=== PATIENT | female | born 1985 | race African-American/Black ===

== ENCOUNTER 2022-11-06 02:21 | Emergency (ER) | payer SELFPAY ==
[2022-11-06 02:24] VITALS: BP 115/70; PULSE 83; RESP 18; TEMP 37; O2SAT 99; BMI 25.7
[2022-11-06 03:14] VITALS: BP 103/73; PULSE 73; RESP 17; TEMP 36.3; O2SAT 100
--- NOTE | 2022-11-06 03:48 | ECG_ITS ---
Test Reason : CHEST PAIN Blood Pressure : / mmHG Vent. Rate : 065 BPM Atrial Rate : 065 BPM P-R Int : 126 ms QRS Dur : 090 ms QT Int : 402 ms P-R-T Axes : 059 045 032 degrees QTc Int : 418 ms Normal sinus rhythm Normal ECG No previous ECGs available Referred By: Marlen Landis Electronically Signed By:Herber Roque
--- NOTE | 2022-11-06 04:11 | ED_ITS ---
HPI - General Adult General Chief complaint: General Medical Stated complaint: chest pain, arm numbness Time Seen by Provider: 11/06/22 03:46 Source: patient Mode of arrival: ambulatory Limitations: no limitations History of Present Illness HPI narrative: Patient comes to the emergency room complaining of chest pain for 3 months and breast pain for several weeks. Patient states that she feels like, dispensing her nipple. Denies inversion of nipple, denies having palpated lumps in the breast. Denies shortness of breath. No fever chills. No URIs. Related Data Allergies Allergy/AdvReac Type Severity Reaction Status Date / Time No Known Allergies Allergy Verified 11/06/22 02:56 Review of Systems Review of Systems: Constitutional : No Weight loss, No Fever, No Chills, No Night Sweats, No Fatigue, No Malaise ENT/Mouth : No Hearing loss, No Ear Pain, No Nasal Congestion, No Sinus Pain, No Hoarseness, No sore throat, No Rhinorrhea, No Swallowing Difficulty Eyes: No Eye Pain, No Swelling, No Redness, No Foreign Body, No Discharge, No Vision Changes Cardiovascular : Complaining of chronic left-sided Chest Pain, No SOB, No Dyspnea on Exertion, No Orthopnea, No Edema, No Palpitations Respiratory : No Cough, No Sputum, No Wheezing, No Smoke Exposure, No Dyspnea Gastrointestinal : No Nausea, No Vomiting, No Diarrhea, No Constipation, No abdominal Pain, No Hematochezia, No Melena Genitourinary : no irregular bleeding, No Dysuria, No Urinary Frequency, No Hematuria, No Urinary Incontinence, No Urgency, No Flank Pain, No Urinary Flow Changes, No Hesitancy Musculoskeletal : No joint pain, No Myalgias, No Joint Swelling Skin : No Skin Lesions, No rash, complaining of chronic nipple pain on the left, Neuro : No Weakness, No Numbness, No Paresthesias, No Loss of Consciousness, No Dizziness, No Headache Psych : No Anxiety/Panic, No Depression, No SI/HI/AH/VH, No Social Issues, Heme/Lymph: No Bruising, No Bleeding,No Lymphadenopathy Endocrine : No Polyuria, No Polydipsia, No Temperature Intolerance PMFSH Social History Social History Alcohol intake: never Smoked in Last 30 Days: No Use of substances other than those prescribed or required for medical reasons: No Advance Directives: No Advance Directives Information Provided: Yes Physical Exam ED Vital Signs: Vital Signs - 24 hr 11/06/22 02:24 11/06/22 03:14 Temperature 98.6 F 97.3 F Pulse Rate 83 73 Respiratory Rate 18 17 Blood Pressure 115/70 103/73 Pulse Oximetry 99 100 Oxygen Delivery Method Room Air Room Air BMI result Body Mass Index 25.7 Const Other: Appearance: Alert. Oriented X3. No acute distress. Eyes: Pupils equal, round and reactive to light. ENT: Pharynx normal. Neck: Normal inspection. Neck supple. No lymph nodes noted. No crepitus CVS: Normal heart rate and rhythm. Pulses normal. Normal S1 and S2 Respiratory: No respiratory distress. Breath sounds normal. No Wheezing. No rales Abdomen: Soft and nontender. No rigidity. No distention. Skin: Skin warm and dry. Normal skin color. Normal skin turgor. No pulse on the breast within normal limits, no nipple inversion, no palpable lumps on the breasts or axillae Extremities: No lower extremity edema. No Lacerations. No Rash Neuro: Oriented X 3. No motor deficit. No sensory deficit. Moving all extremities. No slurred speech. CN 2 through 12 grossly intact Psych: calm, cooperative, normal affect Course Course Course Narrative: -discussed with the patient that her physical exam is normal. If patient keeps having nipple/breast pain, she will likely need a mammogram which can be arranged through her primary care physician. Medical Decision Making Medical Decision Making [facility] Narrative: -EKG my interpretation: Normal sinus rhythm, heart rate 65, no ST segment depression or elevation, no T-wave inversion, QTC 418 -troponin negative -source of chest pain unlikely to be cardiac, patient has had pain for months, likely musculoskeletal -patient instructed to follow-up with her primary care physician, patient may need mammogram, discussed with patient. Differential Diagnosis Differential Diagnoses: The differential diagnosis associated with the presentation includes (ACS, costochondritis, musculoskeletal pain, unlikely tash gnancy breast) Lab Data [facility] Lab Attestation statement: I reviewed the patient's lab results. 11/06/22 04:21 11/06/22 04:21 Labs: Lab Results 11/06/22 11/06/22 11/06/22 Range/Units 04:21 04:21 04:21 WBC 7.6 (4.8-10.8) X10*3/uL RBC 4.95 (4.20-5.50) X10*6/uL Hgb 10.8 L (12.0-16.0) g/dl Hct 34.7 L (37.0-47.0) % MCV 70.1 L (80.0-98.0) fL MCH 21.8 L (27.0-33.0) pg MCHC 31.1 (31.0-35.0) g/dl RDW 13.7 (11.0-16.0) % Plt Count 272 (160-400) X10*3/uL MPV 9.6 (9.4-12.3) fL Immature Gran % (Auto) 0.1 (0.0-0.4) % Neut % (Auto) 61.1 (45-73) % Lymph % (Auto) 28.6 (20-40) % [place] % (Auto) 8.6 (2-11) % Eos % (Auto) 0.9 (0-4) % Baso % (Auto) 0.7 (0-2) % Lymph # (Auto) 2.2 (1.2-4.9) X10*3/uL [place] # (Auto) 0.7 (0.1-1.2) X10*3/uL Eos # (Auto) 0.1 (0.0-0.4) X10*3/uL Baso # (Auto) 0.1 (0.0-0.2) X10*3/uL Abs Immat Gran (auto) 0.01 (0.00-0.03) X10*3/uL Absolute Neuts (auto) 4.6 (2.0-8.3) x10*3/uL Absolute Nucleated RBC 0.000 (0.0-0.012) X10*3/uL Nucleated RBC % (auto) 0.0 (0.0-0.2) /100WBC Sodium 140 (135-145) mmol/L Potassium 3.6 (3.3-5.1) mmol/L Chloride 108 (96-108) mmol/L Carbon Dioxide 26 (22-29) mmol/L Anion Gap 10 L (12-20) BUN 7 L (9-16) mg/dL Creatinine 0.75 (0.5-1.4) mg/dL Estim Creat Clear Calc 94.5 Estimated GFR > 60 Random Glucose 97 (60-115) mg/dL Calcium 9.3 (8.4-10.2) mg/dL Troponin I High Sens < 2.7 (<3.5-17.0) ng/L Critical Care Time Critical Care Time Critical Care Time: Yes Total Critical Care Time: 30 Attestation: I have personally provided critical care time. Time includes review of lab data, radiology results, discussion with consultants, and monitoring for potential decompensation. Intervention performed as documented. Discharge Plan Discharge Clinical Impression: Chronic chest pain Patient Disposition: Home, Self-Care Instructions: Chest Pain (ED) Additional Instructions: May take Tylenol or ibuprofen for the pain. Please follow-up with her primary care physician, you may need a mammogram if you continue having breast pain. Please follow-up with your primary care physician tomorrow. If you have any worsening or new symptoms, please return to the emergency room or call 911
[2022-11-06 04:26] LABS: Basophils Absolute Auto 0.1 X10*3/uL (0.0-0.2); Basophils Percent Auto 0.7 % (0-2); Eosinophils Absolute Auto 0.1 X10*3/uL (0.0-0.4); Eosinophils Percent Auto 0.9 % (0-4); Hematocrit 34.7 % (37.0-47.0); Hemoglobin 10.8 g/dl (12.0-16.0); Imm Gran Abs Auto 0.01 X10*3/uL (0.00-0.03); Imm Gran Pct Auto 0.1 % (0.0-0.4); Lymphocytes Absolute Auto 2.2 X10*3/uL (1.2-4.9); Lymphocytes Percent Auto 28.6 % (20-40); MANUAL DIFF FLAG NO; Mean Corpuscular HGB Conc 31.1 g/dl (31.0-35.0); Mean Corpuscular Hemoglobin 21.8 pg (27.0-33.0); Mean Corpuscular Volume 70.1 fL (80.0-98.0); Mean Platelet Volume 9.6 fL (9.4-12.3); Monocytes Absolute Auto 0.7 X10*3/uL (0.1-1.2); Monocytes Percent Auto 8.6 % (2-11); Neutrophils Absolute Auto 4.6 x10*3/uL (2.0-8.3); Neutrophils Percent Auto 61.1 % (45-73); Platelet Count 272 X10*3/uL (160-400); Red Blood Count 4.95 X10*6/uL (4.20-5.50); Red Cell Distribution Width 13.7 % (11.0-16.0); White Blood Count 7.6 X10*3/uL (4.8-10.8)
[2022-11-06 04:40] LABS: Anion Gap 10 (12-20); Blood Urea Nitrogen 7 mg/dL (9-16); Calcium 9.3 mg/dL (8.4-10.2); Carbon Dioxide 26 mmol/L (22-29); Chloride 108 mmol/L (96-108); Creatinine Clr Calc Pharmacy 94.5; Estimated Glomerular Filt Rate > 60; Glucose Random 97 mg/dL (60-115); Potassium 3.6 mmol/L (3.3-5.1); Sodium 140 mmol/L (135-145)
[2022-11-06 04:48] LABS: Troponin-I High Sensitivity < 2.7 ng/L (<3.5-17.0)
[2022-11-06 05:30] VITALS: BP 112/74; PULSE 73; RESP 17; TEMP 36.9; O2SAT 99
== END 2022-11-06 05:30 | disposition home or self-care (01) ==
PROVIDERS: Emergency Provider Emergency Medicine
DX: G89.29 Other chronic pain (principal); R07.9 Chest pain, unspecified
CPT/HCPCS: 36415; 80048; 84484; 85025; 93005; 99283; 99284

== ENCOUNTER → 2022-11-06 03:48 | Outpatient (BNV) | payer SELFPAY | PROVIDERS: Emergency Provider Emergency Medicine; Visit Provider Internal Medicine Cardiovascular Disease | DX: R07.9 Chest pain, unspecified (principal) | CPT/HCPCS: 93010 ==

== ENCOUNTER 2023-12-22 18:04 | Emergency (ER) | payer MEDICAID, SELFPAY ==
[2023-12-22 18:19] VITALS: BP 114/73; PULSE 85; RESP 18; TEMP 36.6; O2SAT 99; BMI 26.6
--- NOTE | 2023-12-22 18:21 | ED.GENADULT ---
HPI - General Adult General Chief complaint: Abdominal Pain Stated complaint: Vaginal discomfort/?Preg Time Seen by Provider: 12/22/23 21:01 Related Data Allergies Allergy/AdvReac Type Severity Reaction Status Date / Time Penicillins [PCN] Allergy Anaphylaxis Verified 12/22/23 18:22 [facility] Social History Social History Alcohol intake: never Smoked in Last 30 Days: No Advance Directives: No Advance Directives Information Provided: Yes Do you have a plan to hurt others: No Plan Physical Exam ED Vital Signs: Vital Signs - 24 hr 12/22/23 18:19 12/22/23 20:12 12/22/23 20:24 Temperature 98 F 98.8 F 98.4 F Pulse Rate 85 67 69 Respiratory Rate 18 17 20 Blood Pressure 114/73 107/68 107/68 Pulse Oximetry 99 100 99 Oxygen Delivery Method Room Air Room Air Room Air BMI result Body Mass Index 26.6 Course Course Course Narrative: RME, this is a rapid medical exam performed by Josue Rivera please refer to primary provider for complete H&P- 38 year old female presents for evaluation of pelvic pain and discharge. She reports that he last menstrual cycle was 11/30/23. She reports having 3 positive tests at home, but is status post tubal ligation. Plan for labs, UA. Will consider ultrasound pending HCG resullts Reevaluation(s) Reevaluation #1: please see other chart that I started Time: 21:19 Medical Decision Making Lab Data 12/22/23 18:34 12/22/23 18:34 Labs: Lab Results 12/22/23 Range/Units 18:34 WBC 8.0 (4.8-10.8) X10*3/uL RBC 4.83 (4.20-5.50) X10*6/uL Hgb 10.7 L (12.0-16.0) g/dl Hct 34.3 L (37.0-47.0) % MCV 71.0 L (80.0-98.0) fL MCH 22.2 L (27.0-33.0) pg MCHC 31.2 (31.0-35.0) g/dl RDW 14.0 (11.0-16.0) % Plt Count 242 (160-400) X10*3/uL MPV 9.5 (9.4-12.3) fL Immature Gran % (Auto) 0.3 (0.0-0.4) % Neut % (Auto) 61.1 (45-73) % Lymph % (Auto) 27.1 (20-40) % [place] % (Auto) 9.8 (2-11) % Eos % (Auto) 1.1 (0-4) % Baso % (Auto) 0.6 (0-2) % Lymph # (Auto) 2.2 (1.2-4.9) X10*3/uL [place] # (Auto) 0.8 (0.1-1.2) X10*3/uL Eos # (Auto) 0.1 (0.0-0.4) X10*3/uL Baso # (Auto) 0.1 (0.0-0.2) X10*3/uL Abs Immat Gran (auto) 0.02 (0.00-0.03) X10*3/uL Absolute Neuts (auto) 4.9 (2.0-8.3) x10*3/uL Absolute Nucleated RBC 0.000 (0.0-0.012) X10*3/uL Nucleated RBC % (auto) 0.0 (0.0-0.2) /100WBC Sodium 139 (135-145) mmol/L Potassium 3.8 (3.3-5.1) mmol/L Chloride 109 H (96-108) mmol/L Carbon Dioxide 23 (22-29) mmol/L Anion Gap 11 L (12-20) BUN 10 (9-16) mg/dL Creatinine 0.87 (0.5-1.4) mg/dL Estim Creat Clear Calc 81.2 Estimated GFR > 60 Random Glucose 103 (60-115) mg/dL Calcium 9.0 (8.4-10.2) mg/dL Total Bilirubin 0.4 (0.0-1.0) mg/dL AST 12 (5-31) U/L ALT 11 (0-31) U/L Alkaline Phosphatase 82 (39-117) U/L Total Protein 6.7 (6.5-8.0) g/dL Albumin 3.9 (3.5-5.0) g/dL Lipase 28 (8-78) U/L Beta HCG, Quant < 2 mIU/mL Urine Color Yellow Urine Appearance Clear Urine pH 6.5 (5.0-9.0) Ur Specific [place] 1.010 (1.005-1.025) Urine Protein Negative (Neg-Trace) mg/dL Urine Glucose (UA) Negative (Negative) mg/dL Urine Ketones Negative (Negative) mg/dL Urine Blood Moderate (2+) H (Negative) Urine Nitrite Negative (Negative) Ur Leukocyte Esterase Negative (Negative) Urine RBC 6-10 H (0-2) /HPF Urine WBC 0-5 (0-5) /HPF Ur Squamous Epith Cells 6-10 (0-2) /HPF Urine Bacteria 1+ (None Seen) Hyaline Casts 0-2 (0-2) /LPF Discharge Plan Discharge Clinical Impression: Abdominal pain, Pelvic pain Patient Disposition: Home, Self-Care Instructions: Pelvic Pain in Women (ED), Abdominal Pain (ED) Additional Instructions: call your obstetrics/gynecology nurse this week for follow up Referrals: Physician,None [Primary Care Provider] - 5 days Print Language: Maori
[2023-12-22 18:40] LABS: MANUAL DIFF FLAG NO
[2023-12-22 18:42] LABS: Basophils Absolute Auto 0.1 X10*3/uL (0.0-0.2); Basophils Percent Auto 0.6 % (0-2); Eosinophils Absolute Auto 0.1 X10*3/uL (0.0-0.4); Eosinophils Percent Auto 1.1 % (0-4); Hematocrit 34.3 % (37.0-47.0); Hemoglobin 10.7 g/dl (12.0-16.0); Imm Gran Abs Auto 0.02 X10*3/uL (0.00-0.03); Imm Gran Pct Auto 0.3 % (0.0-0.4); Lymphocytes Absolute Auto 2.2 X10*3/uL (1.2-4.9); Lymphocytes Percent Auto 27.1 % (20-40); Mean Corpuscular HGB Conc 31.2 g/dl (31.0-35.0); Mean Corpuscular Hemoglobin 22.2 pg (27.0-33.0); Mean Platelet Volume 9.5 fL (9.4-12.3); Monocytes Absolute Auto 0.8 X10*3/uL (0.1-1.2); Monocytes Percent Auto 9.8 % (2-11); Neutrophils Absolute Auto 4.9 x10*3/uL (2.0-8.3); Neutrophils Percent Auto 61.1 % (45-73); Platelet Count 242 X10*3/uL (160-400); Red Blood Count 4.83 X10*6/uL (4.20-5.50)
[2023-12-22 18:43] LABS: Appearance Urine Clear; Color Urine Yellow; Glucose Urine UA Negative (Negative); Leukocyte Esterase Urine Negative (Negative); Nitrite Urine Negative (Negative); PH 6.5 (5.0-9.0); UMIC TRIGGER UACC YES; Urine Blood Moderate (2+) (Negative); Urine Ketones Negative (Negative); Urine Protein Negative (Neg-Trace)
[2023-12-22 18:45] LABS: Bacteria Urine 1+ (None Seen); Hyaline Casts Urine 0-2 /LPF (0-2); WBC Urine 0-5 /HPF (0-5)
[2023-12-22 19:04] LABS: Alanine Aminotransferase 11 U/L (0-31); Albumin Level 3.9 g/dL (3.5-5.0); Alkaline Phosphatase 82 U/L (39-117); Anion Gap 11 (12-20); Aspartate Amino Transferase 12 U/L (5-31); Bilirubin Total 0.4 mg/dL (0.0-1.0); Blood Urea Nitrogen 10 mg/dL (9-16); Carbon Dioxide 23 mmol/L (22-29); Chloride 109 mmol/L (96-108); Creatinine Clr Calc Pharmacy 81.2; Estimated Glomerular Filt Rate > 60; Glucose Random 103 mg/dL (60-115); Lipase 28 U/L (8-78); Potassium 3.8 mmol/L (3.3-5.1); Sodium 139 mmol/L (135-145); Total Protein 6.7 g/dL (6.5-8.0)
[2023-12-22 19:06] LABS: HCG Quantitative < 2 mIU/mL
[2023-12-22 20:12] VITALS: BP 107/68; PULSE 67; RESP 17; TEMP 37.1; O2SAT 100
[2023-12-22 20:24] VITALS: BP 107/68; PULSE 69; RESP 20; TEMP 36.9; O2SAT 99
--- NOTE | 2023-12-22 21:10 | ED.ABDPAIN ---
HPI - Abdominal Pain General Chief Complaint: Abdominal Pain Stated Complaint: Vaginal discomfort/?Preg Time Seen by Provider: 12/22/23 21:01 Source: patient Mode of arrival: ambulatory Limitations: no limitations History of Present Illness ED Provider: Dr. Ochoa HPI narrative: Patient concerned because she has her tubes tied and has been having pelvic LLQ tenderness. She took 3 tests at home which were positive. Onset (ago): week(s) Related Data Allergies Allergy/AdvReac Type Severity Reaction Status Date / Time Penicillins [PCN] Allergy Anaphylaxis Verified 12/22/23 18:22 Review of Systems Review of Systems Yes all other systems are reviewed and are negative Denies Sensory deficit (Neuro) [facility] Social History Social History Alcohol intake: never Smoked in Last 30 Days: No Advance Directives: No Advance Directives Information Provided: Yes Do you have a plan to hurt others: No Plan Physical Exam ED Vital Signs: Vital Signs - 24 hr 12/22/23 18:19 12/22/23 20:12 12/22/23 20:24 Temperature 98 F 98.8 F 98.4 F Pulse Rate 85 67 69 Respiratory Rate 18 17 20 Blood Pressure 114/73 107/68 107/68 Pulse Oximetry 99 100 99 Oxygen Delivery Method Room Air Room Air Room Air BMI result Body Mass Index 26.6 Const General: healthy appearing Nutritional Appearance: average body habitus Orientation/consciousness: oriented to person and patient oriented x3 Limitations: no limitations HENMT Head: Yes normal to inspection Ears: external ears normal General nose exam: Normal external nose present Mouth: Normal oral and palatal mucosa present and oropharynx normal Throat: Yes posterior oropharynx normal Eyes General: appearance normal, both eyes and all related structures Neck Neck: Yes normal visual inspection Chest Chest palpation & inspection: normal inspection of the chest Resp Auscultation: clear to auscultation bilaterally Cardio Jugular venous distension: no JVD Rate: regular rate Rhythm: regular rhythm Heart sounds: S1 normal heart sound present and S2 normal heart sound present GI Inspection: Yes normal to inspection Palpation (GI): Soft to palpation, nontender and No hepatosplenomegaly present Auscultation: normal bowel sounds General: Yes no CVA tenderness Back/Spine/Pelvis Back: no CVA tenderness Skin General skin exam: no rashes or lesions noted Neuro General: oriented to person and patient oriented x3 Cranial nerves: Yes CN's II-XII intact bilaterally Motor exam (neuro): 5/5 motor strength present throughout Sensory Exam: No Sensory deficit (Neuro) Extrem General: Yes normal to inspection Psych Appearance: grossly normal Course Reevaluation(s) Reevaluation #1: patient appearing well, non toxic appearing, no abdominal pain to palpation. BHCG quant negative, will check urine for neisseria and chlamydia and dc home to follow up with her obstetrics gynecology md Time: 21:13 Medical Decision Making Differential Diagnosis Differential Diagnoses: The differential diagnosis associated with the presentation includes (ectopic , ovarian cyst, UTI, STI) Admission/Observation Consideration of admission/observation: Escalation of care including admission/observation considered (upon arrival patient considered for admission) Lab Data 12/22/23 18:34 12/22/23 18:34 Labs: Lab Results 12/22/23 Range/Units 18:34 WBC 8.0 (4.8-10.8) X10*3/uL RBC 4.83 (4.20-5.50) X10*6/uL Hgb 10.7 L (12.0-16.0) g/dl Hct 34.3 L (37.0-47.0) % MCV 71.0 L (80.0-98.0) fL MCH 22.2 L (27.0-33.0) pg MCHC 31.2 (31.0-35.0) g/dl RDW 14.0 (11.0-16.0) % Plt Count 242 (160-400) X10*3/uL MPV 9.5 (9.4-12.3) fL Immature Gran % (Auto) 0.3 (0.0-0.4) % Neut % (Auto) 61.1 (45-73) % Lymph % (Auto) 27.1 (20-40) % [place] % (Auto) 9.8 (2-11) % Eos % (Auto) 1.1 (0-4) % Baso % (Auto) 0.6 (0-2) % Lymph # (Auto) 2.2 (1.2-4.9) X10*3/uL [place] # (Auto) 0.8 (0.1-1.2) X10*3/uL Eos # (Auto) 0.1 (0.0-0.4) X10*3/uL Baso # (Auto) 0.1 (0.0-0.2) X10*3/uL Abs Immat Gran (auto) 0.02 (0.00-0.03) X10*3/uL Absolute Neuts (auto) 4.9 (2.0-8.3) x10*3/uL Absolute Nucleated RBC 0.000 (0.0-0.012) X10*3/uL Nucleated RBC % (auto) 0.0 (0.0-0.2) /100WBC Sodium 139 (135-145) mmol/L Potassium 3.8 (3.3-5.1) mmol/L Chloride 109 H (96-108) mmol/L Carbon Dioxide 23 (22-29) mmol/L Anion Gap 11 L (12-20) BUN 10 (9-16) mg/dL Creatinine 0.87 (0.5-1.4) mg/dL Estim Creat Clear Calc 81.2 Estimated GFR > 60 Random Glucose 103 (60-115) mg/dL Calcium 9.0 (8.4-10.2) mg/dL Total Bilirubin 0.4 (0.0-1.0) mg/dL AST 12 (5-31) U/L ALT 11 (0-31) U/L Alkaline Phosphatase 82 (39-117) U/L Total Protein 6.7 (6.5-8.0) g/dL Albumin 3.9 (3.5-5.0) g/dL Lipase 28 (8-78) U/L Beta HCG, Quant < 2 mIU/mL Urine Color Yellow Urine Appearance Clear Urine pH 6.5 (5.0-9.0) Ur Specific [place] 1.010 (1.005-1.025) Urine Protein Negative (Neg-Trace) mg/dL Urine Glucose (UA) Negative (Negative) mg/dL Urine Ketones Negative (Negative) mg/dL Urine Blood Moderate (2+) H (Negative) Urine Nitrite Negative (Negative) Ur Leukocyte Esterase Negative (Negative) Urine RBC 6-10 H (0-2) /HPF Urine WBC 0-5 (0-5) /HPF Ur Squamous Epith Cells 6-10 (0-2) /HPF Urine Bacteria 1+ (None Seen) Hyaline Casts 0-2 (0-2) /LPF Tests considered The following testing was considered but not selected: Considered obtaining and US of the pelvis, but patient with normal labs, normal vitals and nontender abdomen Prescription Management I considered prescription management with: Antibiotic (no evidence of UTI so no abx prescribed) Discharge Plan Discharge Clinical Impression: Abdominal pain, Pelvic pain Patient Disposition: Home, Self-Care Instructions: Pelvic Pain in Women (ED), Abdominal Pain (ED) Additional Instructions: call your obstetrics gynecology md this week for follow up Referrals: Physician,None [Primary Care Provider] - 5 days Interventions: ED Discharge Assessment Last Done: 12/22/23 21:43 Discharge Date/Time: 12/22/23 21:45 Print Language: Iranian
[2023-12-22 21:43] VITALS: BP 104/71; PULSE 76; RESP 16; TEMP 36.9; O2SAT 100
== END 2023-12-22 21:45 | disposition home or self-care (01) ==
PROVIDERS: Physician Assistant; Emergency Provider Emergency Medicine
DX: R10.9 Unspecified abdominal pain (principal); R10.2 Pelvic and perineal pain; N89.8 Other specified noninflammatory disorders of vagina; Z98.51 Tubal ligation status
CPT/HCPCS: 36415; 80053; 81001; 83690; 84702; 85025; 99283; 99284

== ENCOUNTER 2024-06-07 21:58 | Inpatient (IN) | payer MEDICAID, SELFPAY ==
--- NOTE | 2024-06-07 | ECG_ITS ---
Test Reason : SEIZURE Blood Pressure : */* mmHG Vent. Rate : 112 BPM Atrial Rate : 112 BPM P-R Int : 130 ms QRS Dur : 80 ms QT Int : 310 ms P-R-T Axes : 55 28 16 degrees QTcB Int : 423 ms Sinus tachycardia Otherwise normal ECG When compared with ECG of 06-Nov-2022 03:55, Vent. rate has increased by 47 bpm Nonspecific T wave abnormality now evident in Anterior leads Referred By: Generic ED Physician Electronically Signed By: DEBORAH MCKEON
--- NOTE | ~2024-06-07 | CT_ITS ---
CLINICAL HISTORY: abdominal pain, rectal bleed. CT abdomen and pelvis without contrast Comparison: None Findings: The lung bases are clear. The gallbladder is surgically absent. No biliary ductal dilatation. Unenhanced liver, spleen, pancreas, adrenal glands and kidneys are within normal limits. No ureteral stones and no hydronephrosis or hydroureter. No bowel obstruction, pneumoperitoneum, or pneumatosis. Normal appendix. Uterus is retroverted. Urinary bladder is nearly empty. Abdominal aorta is normal in size. No acute fracture. IMPRESSION: 1. No acute findings. 2. Reason for rectal bleeding is not apparent on the CT. This document has been electronically signed by: Geeta Mary MD on 06/08/2024 00:24:35
--- NOTE | ~2024-06-07 | US_ITS ---
EXAMINATION: US PELVIS CLINICAL INFORMATION: Abnormal uterine bleeding. COMPARISON: None available. Correlation made with CT abdomen and pelvis 06/07/2024. TECHNIQUE: Ultrasound of the pelvis is performed using both transabdominal and transvaginal transducers along with Doppler. Transvaginal imaging is performed due to inadequate visualization transabdominally. FINDINGS: Uterus: The uterus is retroverted, retroflexed, and measures 10.3 x 5.3 x 6.4 cm. The cervix is normal in appearance with a small nabothian cyst. The double wall endometrial thickness is 9 mm. It is uniform without irregularity. Trilaminar appearance. The uterus is smooth in contour and has normal myometrial echogenicity. No visible fibroid. Adnexa: Both ovaries are visualized. There is normal color flow to the adnexa. There is no ovarian torsion. Trace anechoic free pelvic fluid, likely physiologic. There are no adnexal masses. Right ovary measures 3.2 x 1.5 x 1.2 cm. Volume = 3.0 mL. Normal sonographic appearance. Left ovary measures 4.2 x 2.8 x 3.7 cm. Volume = 22.8 mL. Dominant follicle present measuring up to 2.9 cm. Normal sonographic appearance. US/US pelvic and transvaginal IMPRESSION: Normal pelvic ultrasound. No etiology for abnormal uterine bleeding. Electronically signed by: Devin Miller MD 06/10/2024 03:54 PM [facility]
--- NOTE | ~2024-06-07 | MR_ITS ---
CLINICAL HISTORY: seizure MR of the brain without contrast Comparison: CT/SR - CT HEAD/BRAIN WO IV CON - 06/07/24 23:06 EST Findings: No acute infarction, hemorrhage, mass-effect or herniation. No hydrocephalus. Signal intensity is within normal limits. No evidence of mesial temporal sclerosis. No extra-axial fluid collection or mass. Unremarkable sella. Intact flow voids. Normal orbits. Mild mucosal thickening in the paranasal sinuses with a trace amount of fluid. Retention cysts/polyps in the maxillary sinuses. The mastoid air cells are clear. Unremarkable osseous structures. Impression: Normal brain. Sinusitis could be considered. This document has been electronically signed by: Yolis Krause MD on 06/08/2024 18:06:22
--- NOTE | ~2024-06-07 | CT_ITS ---
CLINICAL HISTORY: seizure, fall, neck pain CT cervical spine without contrast Comparison: None Findings: Normal vertebral body alignment. No significant degenerative change. No acute fractures or dislocations. Prevertebral soft tissues within normal limits. Lung apices are clear. IMPRESSION: No acute findings. This document has been electronically signed by: Geeta Mary MD on 06/08/2024 00:28:16
--- NOTE | ~2024-06-07 | CT_ITS ---
CLINICAL HISTORY: seizure, headache CT head without contrast Comparison: None Findings: No intra-axial mass, midline shift, hydrocephalus, or acute hemorrhage. No significant atrophy-like change or white matter disease. Mucosal thickening in bilateral maxillary sinuses and ethmoid air cells and right maxillary sinus mucous retention cyst/polyp. The orbits are unremarkable. There is no acute skull fracture. IMPRESSION: 1. No acute intracranial findings. This document has been electronically signed by: Geeta Mary MD on 06/08/2024 00:31:56
--- NOTE | ~2024-06-07 | XR_ITS ---
CLINICAL HISTORY: cough 1 view chest x-ray Comparison: None Findings: Normal size heart. No consolidation, significant pleural effusion or pneumothorax. No acute fracture. IMPRESSION: 1. No acute findings. This document has been electronically signed by: Geeta Mary MD on 06/07/2024 23:33:34
[2024-06-07 22:14] VITALS: BP 110/54; BP 110/64; PULSE 110; PULSE 120; RESP 20; TEMP 37.9; O2SAT 100; BMI 28.3
[2024-06-07 22:18] VITALS: BP 110/54; PULSE 110; RESP 20; TEMP 37.9; O2SAT 100
[2024-06-07 22:35] LABS: MANUAL DIFF FLAG NO
[2024-06-07 22:37] LABS: Basophils Percent Auto 0.3 % (0-2); Eosinophils Percent Auto 0.3 % (0-4); Hematocrit 34.6 % (37.0-47.0); Imm Gran Abs Auto 0.01 X10*3/uL (0.00-0.03); Imm Gran Pct Auto 0.2 % (0.0-0.4); Lymphocytes Absolute Auto 0.8 X10*3/uL (1.2-4.9); Lymphocytes Percent Auto 12.9 % (20-40); Mean Corpuscular HGB Conc 31.8 g/dl (31.0-35.0); Mean Corpuscular Hemoglobin 22.2 pg (27.0-33.0); Mean Corpuscular Volume 69.9 fL (80.0-98.0); Mean Platelet Volume 9.4 fL (9.4-12.3); Monocytes Absolute Auto 0.9 X10*3/uL (0.1-1.2); Monocytes Percent Auto 14.7 % (2-11); Neutrophils Absolute Auto 4.2 x10*3/uL (2.0-8.3); Neutrophils Percent Auto 71.6 % (45-73); Platelet Count 208 X10*3/uL (160-400); Red Blood Count 4.95 X10*6/uL (4.20-5.50); Red Cell Distribution Width 13.7 % (11.0-16.0); White Blood Count 5.8 X10*3/uL (4.8-10.8)
[2024-06-07 22:51] LABS: Alanine Aminotransferase 10 U/L (0-31); Albumin Level 3.7 g/dL (3.5-5.0); Alkaline Phosphatase 82 U/L (39-117); Anion Gap 9 (12-20); Aspartate Amino Transferase 17 U/L (5-31); Bilirubin Total 0.3 mg/dL (0.0-1.0); Blood Urea Nitrogen 10 mg/dL (9-16); Calcium 8.2 mg/dL (8.4-10.2); Carbon Dioxide 25 mmol/L (22-29); Chloride 109 mmol/L (96-108); Creatinine Clr Calc Pharmacy 89.8; Estimated Glomerular Filt Rate > 60; Glucose Random 102 mg/dL (60-115); Magnesium 1.7 mg/dL (1.6-2.6); Potassium 3.4 mmol/L (3.3-5.1); Sodium 140 mmol/L (135-145); Total Protein 6.7 g/dL (6.5-8.0)
--- NOTE | 2024-06-07 22:57 | ED_ITS ---
HPI - General Adult General Chief complaint: Seizure Stated complaint: SIEZURES, N/V DIARRHEA Time Seen by Provider: 06/07/24 22:39 Source: patient and EMS Mode of arrival: EMS Limitations: no limitations History of Present Illness ED Provider: DR. Gamez HPI narrative: A 38-year-old female brought in by ambulance for evaluation multiple complaints. 1. Headache for the past 2 days and seeing black spots and feeling dizzy. 2. Nausea, vomiting, black stool diarrhea x2 last bowel movement was earlier today, patient been having a diffuse abdominal pain. 3. Fever, nonproductive coughing. 4. Witnessed by her family collapsed and having seizure activity that the patient has no memory of it. Patient otherwise declined using any drugs, no history of seizure, no alcohol use. No sick contacts, no recent travel, patient with a chronic GI issue and constipation. Related Data Allergies Allergy/AdvReac Type Severity Reaction Status Date / Time Penicillins [PCN] Allergy Anaphylaxis Verified 06/07/24 22:17 Review of Systems 2 Review of Systems: All other systems are reviewed and are negative Constitutional: Reports as per HPI and Reports no additional constitutional complaints Eyes: Reports as per HPI and Reports no additional eye complaints Reports system reviewed and no additional complaints, except as documented Cardiovascular: Reports as per HPI and Reports no additional cardiovascular complaints Respiratory: Reports as per HPI and Reports no additional respiratory complaints Gastrointestinal: Reports as per HPI and Reports no additional gastrointestinal complaints Genitourinary: Reports no additional female genitourinary complaints Musculoskeletal: Reports no additional musculoskeletal complaints Skin/Breast: Reports system reviewed and no additional complaints, except as docu Psychiatric: Reports no additional psychiatric complaints Endocrine: Reports no additional endocrine complaints Hematologic/Lymphatic: Reports no additional hematologic/lymphatic complaints Allergic/Immunologic: Reports no additional allergic/immunologic complaints Reports system reviewed and no additional complaints, except as documented and Reports Abnormal speech present [facility] Social History Social History Alcohol intake: never Smoked in Last 30 Days: No Use of substances other than those prescribed or required for medical reasons: No Advance Directives: No Advance Directives Information Provided: No Patient : No Physical Exam ED Vital Signs: Vital Signs - 24 hr 06/07/24 22:14 06/07/24 22:18 06/07/24 23:27 Temperature 100.3 F 100.3 F 102.3 F H Pulse Rate 110 H 110 H 102 H Respiratory Rate 20 20 22 H Blood Pressure 110/54 L 110/54 L 101/52 L Pulse Oximetry 100 100 100 Oxygen Delivery Method Room Air Room Air Room Air 06/08/24 00:36 Temperature 100.0 F Pulse Rate 113 H Respiratory Rate 11 L Blood Pressure 95/51 L Pulse Oximetry 99 Oxygen Delivery Method Room Air BMI result Body Mass Index 28.3 Vital signs have been reviewed and appear to be correct. Blood pressure elevated. Tachycardia, Respiratory rate normal. Fever. Oxygen saturation normal. Appearance: Alert. Oriented X3. No acute distress. Head: Normal external exam. Normocephalic. Atraumatic. No Sullivan signs noted. No raccoon eyes noted Eyes: PERRLA. EOMI. Conjunctiva and sclera normal. Eyelids normal. ENT: TM's Normal. Pharynx normal. Uvula midline. Moist mucous membranes. No trismus noted. No drooling noted. No muffled voice noted. Neck: Normal inspection. Neck supple. FROM. No adenopathy. Thyroid Normal. No meningeal signs. No neck mass noted. CVS: Normal heart rate and rhythm. Heart sound normal. No murmurs noted. Pulses normal throughout. Respiratory: No respiratory distress. Painless inspiration. Breath sounds normal. No wheezes/rales/rhonchi noted. Chest nontender. No accessory muscle usage noted or decreased air movement noted. Abdomen: Soft and nontender. Bowel sounds normal in all 4 quadrants. No distention noted. No organomegaly noted. No visible injury noted. Rectal exam: No stool in the vault, no active bleeding, no tenderness, no palpable masses. Back: No CVA tenderness. Full range of motion noted. Skin: Skin warm and dry. Normal skin color. Normal skin turgor. No rashes/lesions/lacerations noted. Extremities: No lower extremity edema. Extremities exhibit normal range of motion. Extremities nontender. Neuro: Oriented X 3. Cranial nerve exam: II-XII are grossly intact No motor deficit. No sensory deficit. Reflexes normal. Course Reevaluation(s) Reevaluation #1: +influenza B. 1. New onset seizure witnessed by family normal neuro exam, normal head CT, likely secondary to high fever and flu infection will not start antiseizure medication until neuro consult. 2. melena and black stool was reported by the patient, no stool in the rectal vault to be tested for, stable H&H, unremarkable CT abdomen and pelvis for intra-abdominal pathology. Time: 00:41 Medications Administered Generic Name Dose Route Start Last Admin Trade Name Freq PRN Reason Stop Dose Admin Sodium Chloride 1,000 mls @ 999 mls/hr 06/07/24 23:51 06/08/24 00:39 Ns IV 06/08/24 00:51 999 mls/hr .Q1H1M ONE Administration Discontinued Medications Generic Name Dose Route Start Last Admin Trade Name Freq PRN Reason Stop Dose Admin Acetaminophen 650 mg 06/07/24 23:34 06/07/24 23:49 Acetaminophen 325 Mg Tablet PO 06/07/24 23:35 650 mg ONCE ONE Administration Sodium Chloride 1,000 mls @ 999 mls/hr 06/07/24 22:57 06/07/24 23:23 Ns IV 06/07/24 23:57 999 mls/hr .Q1H1M ONE Administration Medical Decision Making Differential Diagnosis Differential Diagnoses: The differential diagnosis associated with the presentation includes ( Intracranial bleed, intracranial mass, pneumonia, pneumothorax, pleural effusion, influenza, COVID-19 infection, RSV, severe anemia, rectal bleed, colitis, diverticulitis.) Admission/Observation Consideration of admission/observation: Escalation of care including admission/observation considered Consult Healthcare Provider Management of the patient was discussed with: Hospitalist ( Dr. Dewey) Lab Data MDM Lab Attestation statement: I reviewed the patient's lab results. 06/07/24 23:25 06/07/24 23:25 Labs: Lab Results 06/07/24 06/07/24 06/07/24 Range/Units 22:31 23:00 23:25 WBC 5.8 6.0 (4.8-10.8) X10*3/uL RBC 4.95 4.99 (4.20-5.50) X10*6/uL Hgb 11.0 L 11.1 L (12.0-16.0) g/dl Hct 34.6 L 34.8 L (37.0-47.0) % MCV 69.9 L 69.7 L (80.0-98.0) fL MCH 22.2 L 22.2 L (27.0-33.0) pg MCHC 31.8 31.9 (31.0-35.0) g/dl RDW 13.7 13.7 (11.0-16.0) % Plt Count 208 221 (160-400) X10*3/uL MPV 9.4 10.2 (9.4-12.3) fL Immature Gran % (Auto) 0.2 0.3 (0.0-0.4) % Neut % (Auto) 71.6 76.2 H (45-73) % Lymph % (Auto) 12.9 L 9.4 L (20-40) % [place] % (Auto) 14.7 H 13.6 H (2-11) % Eos % (Auto) 0.3 0.2 (0-4) % Baso % (Auto) 0.3 0.3 (0-2) % Lymph # (Auto) 0.8 L 0.6 L (1.2-4.9) X10*3/uL [place] # (Auto) 0.9 0.8 (0.1-1.2) X10*3/uL Eos # (Auto) 0.0 0.0 (0.0-0.4) X10*3/uL Baso # (Auto) 0.0 0.0 (0.0-0.2) X10*3/uL Abs Immat Gran (auto) 0.01 0.02 (0.00-0.03) X10*3/uL Absolute Neuts (auto) 4.2 4.5 (2.0-8.3) x10*3/uL Absolute Nucleated RBC 0.000 0.000 (0.0-0.012) X10*3/uL Nucleated RBC % (auto) 0.0 0.0 (0.0-0.2) /100WBC Sodium 140 140 (135-145) mmol/L Potassium 3.4 3.3 (3.3-5.1) mmol/L Chloride 109 H 109 H (96-108) mmol/L Carbon Dioxide 25 24 (22-29) mmol/L Anion Gap 9 L 10 L (12-20) BUN 10 9 (9-16) mg/dL Creatinine 0.81 0.85 (0.5-1.4) mg/dL Estim Creat Clear Calc 89.8 85.6 Estimated GFR > 60 > 60 Random Glucose 102 101 (60-115) mg/dL Lactic Acid 1.0 (0.5-2.0) mmol/L Calcium 8.2 L D 8.3 L (8.4-10.2) mg/dL Magnesium 1.7 (1.6-2.6) mg/dL Total Bilirubin 0.3 0.4 (0.0-1.0) mg/dL Direct Bilirubin 0.1 (0.0-0.5) mg/dL AST 17 18 (5-31) U/L ALT 10 11 (0-31) U/L Alkaline Phosphatase 82 84 (39-117) U/L Troponin I High Sens < 2.7 (<3.5-17.0) ng/L B-Natriuretic Peptide < 10 (<100) pg/mL Total Protein 6.7 7.0 (6.5-8.0) g/dL Albumin 3.7 3.8 (3.5-5.0) g/dL Lipase 23 (8-78) U/L Urine Color Yellow Yellow Urine Appearance Clear Clear Urine pH 5.5 5.5 (5.0-9.0) Ur Specific [place] 1.025 1.025 (1.005-1.025) Urine Protein Trace Negative (Neg-Trace) mg/dL Urine Glucose (UA) Negative Negative (Negative) mg/dL Urine Ketones Negative Negative (Negative) mg/dL Urine Blood Large (3+) H Large (3+) H (Negative) Urine Nitrite Negative Negative (Negative) Ur Leukocyte Esterase Negative Negative (Negative) Urine RBC >20 H >20 H (0-2) /HPF Urine WBC 0-5 0-5 (0-5) /HPF Ur Squamous Epith Cells 6-10 3-5 (0-2) /HPF Urine Bacteria 1+ Trace (None Seen) Hyaline Casts 3-5 0-2 (0-2) /LPF Urine Opiates Screen Not Detected (Not Detect) Ur Buprenorphine Scrn Not Detected (Not Detect) ng/mL Ur Oxycodone Screen Not Detected (Not Detect) ng/mL Urine Methadone Screen Not Detected (Not Detect) ng/mL Urine Fentanyl Screen Not Detected (Not Detect) Ur Barbiturates Screen Not Detected (Not Detect) Ur Phencyclidine Scrn Not Detected (Not Detect) Ur Amphetamines Screen Not Detected (Not Detect) U Benzodiazepines Scrn Not Detected (Not Detect) Urine Cocaine Screen Not Detected (Not Detect) U Marijuana (THC) Screen Not Detected (Not Detect) Ethyl Alcohol < 10 mg/dL Influenza Type A (PCR) NEGATIVE (Negative) Influenza Type B (PCR) POSITIVE A (Negative) RSV RNA Qual (PCR) NEGATIVE (Negative) SARS-CoV-2 RNA (RT-PCR) NEGATIVE (Negative) Independent Interpretation I performed an independent interpretation of an: Plain X-Ray ( Chest: No acute pathology.) and CT Scan ( head/cervical spine/abdominal CT: No acute pathology.) Radiology Impression Discussion of test interpretation with radiology: I have reviewed the radiologist's reading. Discharge Plan Discharge Clinical Impression: Influenza B, New onset seizure, Black stool Patient Disposition: Admitted As Inpatient Print Language: Lithuanian
[2024-06-07 23:07] LABS: Appearance Urine Clear; Color Urine Yellow; Glucose Urine UA Negative (Negative); Leukocyte Esterase Urine Negative (Negative); Nitrite Urine Negative (Negative); PH 5.5 (5.0-9.0); Specific Gravity - Urine 1.025 (1.005-1.025); UMIC TRIGGER UA YES; Urine Blood Large (3+) (Negative); Urine Ketones Negative (Negative); Urine Protein Trace mg/dL (Neg-Trace)
[2024-06-07 23:13] LABS: Influenza A PCR NEGATIVE (Negative); Influenza B PCR POSITIVE (Negative); Resp Syncy Virus RNA Qual PCR NEGATIVE (Negative); SARS COV2 PCR INHOUSE NEGATIVE (Negative)
[2024-06-07 23:22] LABS: Bacteria Urine 1+ (None Seen); RBC Urine >20 /HPF (0-2); WBC Urine 0-5 /HPF (0-5)
[2024-06-07] MEDS: 0.9 % Sodium Chloride 1,000 ML 999 ML IV (23:23)
[2024-06-07 23:27] VITALS: BP 101/52; PULSE 102; RESP 22; TEMP 39.1; O2SAT 100
[2024-06-07 23:43] LABS: MANUAL DIFF FLAG NO
[2024-06-07 23:45] LABS: Basophils Percent Auto 0.3 % (0-2); Eosinophils Percent Auto 0.2 % (0-4); Hematocrit 34.8 % (37.0-47.0); Hemoglobin 11.1 g/dl (12.0-16.0); Imm Gran Abs Auto 0.02 X10*3/uL (0.00-0.03); Imm Gran Pct Auto 0.3 % (0.0-0.4); Lymphocytes Absolute Auto 0.6 X10*3/uL (1.2-4.9); Lymphocytes Percent Auto 9.4 % (20-40); Mean Corpuscular HGB Conc 31.9 g/dl (31.0-35.0); Mean Corpuscular Hemoglobin 22.2 pg (27.0-33.0); Mean Corpuscular Volume 69.7 fL (80.0-98.0); Mean Platelet Volume 10.2 fL (9.4-12.3); Monocytes Absolute Auto 0.8 X10*3/uL (0.1-1.2); Monocytes Percent Auto 13.6 % (2-11); Neutrophils Absolute Auto 4.5 x10*3/uL (2.0-8.3); Neutrophils Percent Auto 76.2 % (45-73); Platelet Count 221 X10*3/uL (160-400); Red Blood Count 4.99 X10*6/uL (4.20-5.50); Red Cell Distribution Width 13.7 % (11.0-16.0)
[2024-06-07 23:46] LABS: Appearance Urine Clear; Color Urine Yellow; Glucose Urine UA Negative (Negative); Leukocyte Esterase Urine Negative (Negative); Nitrite Urine Negative (Negative); PH 5.5 (5.0-9.0); Specific Gravity - Urine 1.025 (1.005-1.025); UMIC TRIGGER UACC YES; Urine Blood Large (3+) (Negative); Urine Ketones Negative (Negative); Urine Protein Negative (Neg-Trace)
[2024-06-07 23:48] LABS: Bacteria Urine Trace (None Seen); Hyaline Casts Urine 0-2 /LPF (0-2); RBC Urine >20 /HPF (0-2); WBC Urine 0-5 /HPF (0-5)
[2024-06-07] MEDS: Acetaminophen 325 MG TABLET 650 MG PO (23:49)
[2024-06-07 23:55] LABS: Amphetamine Screen Urine Not Detected (Not Detect); Barbiturates, Urine Not Detected (Not Detect); Benzodiazepines Screen Urine Not Detected (Not Detect); Buprenorphine Scr Not Detected (Not Detect); Cannabinoid Screen Urine Not Detected (Not Detect); Cocaine Screen Urine Not Detected (Not Detect); Fentanyl, urine Not Detected (Not Detect); Methadone Screen, Urine Not Detected (Not Detect); Opiate Screen Urine Not Detected (Not Detect); Oxycodone Screen Urine Not Detected (Not Detect); Phencyclidine Screen Urine Not Detected (Not Detect)
[2024-06-08] VITALS (10 sets, daily range): BP systolic 82–109; BP diastolic 44–66; PULSE 77–113; RESP 11–22; TEMP 36.8–39.4; O2SAT 98–100
[2024-06-08 00:04] LABS: Alanine Aminotransferase 11 U/L (0-31); Albumin Level 3.8 g/dL (3.5-5.0); Alkaline Phosphatase 84 U/L (39-117); Anion Gap 10 (12-20); Aspartate Amino Transferase 18 U/L (5-31); Bilirubin Direct 0.1 mg/dL (0.0-0.5); Bilirubin Total 0.4 mg/dL (0.0-1.0); Blood Urea Nitrogen 9 mg/dL (9-16); Calcium 8.3 mg/dL (8.4-10.2); Carbon Dioxide 24 mmol/L (22-29); Chloride 109 mmol/L (96-108); Creatinine Clr Calc Pharmacy 85.6; Estimated Glomerular Filt Rate > 60; Ethanol < 10 mg/dL; Glucose Random 101 mg/dL (60-115); Lipase 23 U/L (8-78); Potassium 3.3 mmol/L (3.3-5.1); Sodium 140 mmol/L (135-145)
[2024-06-08 00:05] LABS: B Type Natriuretic Peptide < 10 pg/mL (<100)
[2024-06-08 00:06] LABS: Troponin-I High Sensitivity < 2.7 ng/L (<3.5-17.0)
[2024-06-08] MEDS: 0.9 % Sodium Chloride 1,000 ML 999 ML IV (00:39)
[2024-06-08] MEDS: Ibuprofen 600 MG TABLET PO (04:24)
[2024-06-08] MEDS: Pantoprazole Sodium 40 MG/10 ML VIAL IVPUSH ×2 (05:25→16:22)
--- NOTE | 2024-06-08 05:44 | PM.IMHP ---
History of Present Illness Date of Service: 06/08/24 <LIZZETTE Swenson Last Filed: 06/08/24 05:59> Attending physician on admission: Mehul Dewey <LIZZETTE Swenson Last Filed: 06/08/24 05:59> Chief Complaint: seizure <LIZZETTE Swenson Last Filed: 06/08/24 05:59> Patient is a 38-year-old female with no significant past medical history who presented to the ED after a tonic-clonic seizure, with associated fever, headache, nausea, vomiting, diarrhea, melena, cough and fever for the past 2 days. She only had 1 seizure episode he reports no previous history of seizures. She reports black stool for the last 2 days since feeling poorly. She denies any Pepto-Bismol. She also has a epigastric pain and bilateral groin pain. She denies any hematuria and reports that she is not on her menstrual cycle. <LIZZETTE Swenson Last Filed: 06/08/24 05:59> Review of Systems Constitutional: Constitutional: Reports body ache(s), Reports fatigue, Reports fever(s) and Reports headache(s) <LIZZETTE Swenson Last Filed: 06/08/24 05:59> Eyes: Eyes: Denies change in vision and Denies photophobia <LIZZETTE Swenson Last Filed: 06/08/24 05:59> ENT: Reports headache(s), Reports nasal congestion, Reports nasal discharge and Denies sore throat <LIZZETTE Swenson Last Filed: 06/08/24 05:59> Cardiovascular: Cardiovascular: Denies chest pain, Denies rapid heart rate, Denies leg edema, Denies lightheadedness, Denies dyspnea and Denies dyspnea on exertion <LIZZETTE Swenson Last Filed: 06/08/24 05:59> Respiratory: Respiratory: Denies chest congestion, Denies cough, Denies dyspnea, Denies dyspnea on exertion and Denies wheezing <LIZZETTE Swenson Last Filed: 06/08/24 05:59> Gastrointestinal: Gastrointestinal: Reports abdominal pain, Reports melena, Reports diarrhea, Denies nausea and Denies vomiting <GLENNY Swenson [facility] Last Filed: 06/08/24 05:59> Genitourinary: Genitourinary: Denies hematuria, Denies dysuria and Denies urinary urgency <SavannaGLENNY Luna [facility] Last Filed: 06/08/24 05:59> Musculoskeletal: Musculoskeletal: Reports myalgias <SavannaREDD Luna Last Filed: 06/08/24 05:59> Integumentary/Breasts: Skin/Breast: Denies rash <SavannaREDD Anderson [facility] Last Filed: 06/08/24 05:59> Neurologic: Denies confusion, Reports headache(s), Reports convulsions and Reports seizure-like activity <SavannaREDD Luna [facility] Last Filed: 06/08/24 05:59> Psychiatric: Psychiatric: Denies confusion <SavannaREDD Luna [facility] Last Filed: 06/08/24 05:59> Endocrine: Endocrine: Reports fatigue <SavannaREDD Luna Last Filed: 06/08/24 05:59> Hematologic/Lymphatic: Hematologic/Lymphatic: Denies easy bleeding and Denies easy bruising <SavannaREDD LunaLizzeth Last Filed: 06/08/24 05:59> Allergic/Immunologic: Allergic/Immunologic: Denies wheezing <SavannaREDD Luna [facility] Last Filed: 06/08/24 05:59> [facility] Functional capacity: independent ambulation <REDD Swenson Last Filed: 06/08/24 05:59> Social History: Social History Alcohol intake: never Patient Tobacco Use Status: Never used Tobacco Smoked in Last 30 Days: No Use of substances other than those prescribed or required for medical reasons: No Advance Directives: No Advance Directives Information Provided: No Nutrition Risks: No Nutritional Risk Patient : No <GLENNY Swenson [facility] Last Filed: 06/08/24 05:59> Narrative: No smoking, alcohol or drug use <LIZZETTE Swenson Last Filed: 06/08/24 05:59> Meds Allergies/Adverse reactions: Allergies Allergy/AdvReac Type Severity Reaction Status Date / Time Penicillins [PCN] Allergy Anaphylaxis Verified 06/07/24 22:17 <LIZZETTE Swenson Last Filed: 06/08/24 05:59> Active Medications: Current Medications Acetaminophen (Acetaminophen 325 Mg Tablet) 650 mg PO Q6H PRN PRN Reason: Pain, Mild 1-3,fever,headache Calcium Carbonate (Calcium Carbonate 750 Mg Tab.Chew) 750 mg PO Q4H PRN PRN Reason: Heartburn Lactated Ringer's (Lr) 2,173.71 mls @ 2,173.71 mls/hr 30 ml/kg infuse over 1 hr (2173.71 ml) IV .Q1H ONE Stop: 06/08/24 06:37 Magnesium Hydroxide (Milk Of Magnesia 30 Ml Oral.Susp) 30 ml PO DAILY PRN PRN Reason: Constipation Melatonin (Melatonin 3 Mg Tablet) 6 mg PO BEDTIME PRN PRN Reason: Insomnia Ondansetron HCl (Ondansetron Hcl 4 Mg/2 Ml Vial) 4 mg IVPUSH Q8H PRN PRN Reason: Nausea and Vomiting Pantoprazole Sodium (Pantoprazole Sodium 40 Mg/10 Ml Vial) 40 mg IVPUSH BID@0630,1630 [facility] Last Admin: 06/08/24 05:25 Dose: 40 mg Sodium Chloride (0.9 % Sodium Chloride Flush 3 Ml Syringe) 3 ml IVFLUSH QSHIFT [facility] <LIZZETTE Swenson Last Filed: 06/08/24 05:59> Physical Exam Vital Signs and Narrative: Vital Signs: Last Vital Signs Temp 99.3 F 06/08/24 05:27 Pulse 97 06/08/24 05:27 Resp 14 06/08/24 05:27 BP 82/44 L 06/08/24 05:27 Pulse Ox 98 06/08/24 05:27 O2 Del Method Room Air 06/08/24 05:27 BMI result Body Mass Index 28.3 <LIZZETTE Swenson Last Filed: 06/08/24 05:59> General: AOx3, no acute distress, appears ill Resp: CTA bilaterally CVS: tachy GI: +BS, epigastic tenderness, no distention Skin: Warm, dry Neuro: Cranial nerves II-XII grossly intact bilaterally. Motor grossly intact bilaterally Extremities: No LE edema Psych: Appropriate affect <Savanna MartirLIZZETTE aponte - Last Filed: 06/08/24 05:59> Const: General: No confusion <Savanna Terryfadi GLENNY - Last Filed: 06/08/24 05:59> Orientation/consciousness: No confusion <Savanna TerryREDD aponteLizzeth - Last Filed: 06/08/24 05:59> Eyes: Direct Ophthalmoscopy: No photophobia <Savanna Martir, PABright Last Filed: 06/08/24 05:59> Neuro: General: No confusion <Savanna Terryfadi LIZZETTE - Last Filed: 06/08/24 05:59> Results Labs CBC and Chem 7: 06/07/24 23:25 06/07/24 23:25 <Savanna Terryfadi LIZZETTE Last Filed: 06/08/24 05:59> Labs: Laboratory Results - last 24 hr 06/07/24 06/07/24 06/07/24 22:31 23:00 23:25 MCV 69.9 L 69.7 L MCH 22.2 L 22.2 L MCHC 31.8 31.9 RDW 13.7 13.7 Plt Count 208 221 MPV 9.4 10.2 Immature Gran % (Auto) 0.2 0.3 Neut % (Auto) 71.6 76.2 H Lymph % (Auto) 12.9 L 9.4 L [place] % (Auto) 14.7 H 13.6 H Eos % (Auto) 0.3 0.2 Baso % (Auto) 0.3 0.3 Lymph # (Auto) 0.8 L 0.6 L [place] # (Auto) 0.9 0.8 Eos # (Auto) 0.0 0.0 Baso # (Auto) 0.0 0.0 Abs Immat Gran (auto) 0.01 0.02 Absolute Neuts (auto) 4.2 4.5 Absolute Nucleated RBC 0.000 0.000 Nucleated RBC % (auto) 0.0 0.0 Anion Gap 9 L 10 L Estim Creat Clear Calc 89.8 85.6 Estimated GFR > 60 > 60 Random Glucose 102 101 Lactic Acid 1.0 Calcium 8.2 L D 8.3 L Magnesium 1.7 Total Bilirubin 0.3 0.4 Direct Bilirubin 0.1 AST 17 18 ALT 10 11 Alkaline Phosphatase 82 84 B-Natriuretic Peptide < 10 Total Protein 6.7 7.0 Albumin 3.7 3.8 Lipase 23 Urine Color Yellow Yellow Urine Appearance Clear Clear Urine pH 5.5 5.5 Ur Specific [place] 1.025 1.025 Urine Protein Trace Negative Urine Glucose (UA) Negative Negative Urine Ketones Negative Negative Urine Blood Large (3+) H Large (3+) H Urine Nitrite Negative Negative Ur Leukocyte Esterase Negative Negative Urine RBC >20 H >20 H Urine WBC 0-5 0-5 Ur Squamous Epith Cells 6-10 3-5 Urine Bacteria 1+ Trace Hyaline Casts 3-5 0-2 Urine Opiates Screen Not Detected Ur Buprenorphine Scrn Not Detected Ur Oxycodone Screen Not Detected Urine Methadone Screen Not Detected Urine Fentanyl Screen Not Detected Ur Barbiturates Screen Not Detected Ur Phencyclidine Scrn Not Detected Ur Amphetamines Screen Not Detected U Benzodiazepines Scrn Not Detected Urine Cocaine Screen Not Detected U Marijuana (THC) Screen Not Detected Ethyl Alcohol < 10 Influenza Type A (PCR) NEGATIVE Influenza Type B (PCR) POSITIVE A RSV RNA Qual (PCR) NEGATIVE SARS-CoV-2 RNA (RT-PCR) NEGATIVE <Savanna Mcmahan PA-C Last Filed: 06/08/24 05:59> Assessment and Plan (1) Sepsis: Status: Acute <LIZZETTE Swenson Last Filed: 06/08/24 05:59> (2) New onset seizure: Status: Acute <LIZZETTE Swenson Last Filed: 06/08/24 05:59> (3) Influenza B: Status: Acute <LIZZETTE Swenson Last Filed: 06/08/24 05:59> (4) Black stool: Status: Acute <LIZZETTE Swenson Last Filed: 06/08/24 05:59> (5) Microscopic hematuria: Status: Acute <LIZZETTE Swenson Last Filed: 06/08/24 05:59> Patient is a 38-year-old female with no significant past medical history who presented to the ED after a tonic-clonic seizure, with associated fever, headache, nausea, vomiting, diarrhea, melena, cough and fever for the past 2 days. new onselt seizure, likely febrile due to flu B, UA + microheme, likely rhabdo, +melena but unable to perform FOBT. sepsis and new onset seizure, due to flu B - WBC 6.0, lactic acid 1.0, hypotensive, tachycardic and tachypneic with fever, blood cultures x2 pending - head and c-spine CT negative - A/P CT negative - MRI brain ordered - consider neuro consult pending MRI results - given 2L NS in ED, hypotensive, fluid bolus LR ordered - monitor CBC and BMP melena - unable to perform FOBT - hgb 11.1, hct 34.8, MCV 69.7 - no need for blood transfusion at this time - pantoprazole 40mg BID - NPO - consider GI consult if hgb drops microscopic hematuria, possibly rhabdo - no gross hematuria per pt - monitor for clots in urine, if present consider CBI and urology consult full code VTE prophy: Pneumoboots, anticoagulant contraindicated due to possible GI bleed Patient with sepsis and new onset seizure secondary to flu, requiring admission for at least 2 midnights stay for IV fluids and monitoring. <Savanna Mcmahan PA-C - Last Filed: 06/08/24 05:59> Patient is a 38-year-old female with no significant past medical history who presented to the ED after a tonic-clonic seizure, with associated fever, headache, nausea, vomiting, diarrhea, melena, cough and fever for the past 2 days. new onselt seizure, likely febrile due to flu B, UA + microheme, likely rhabdo, +melena but unable to perform FOBT. sepsis and new onset seizure, due to flu B - WBC 6.0, lactic acid 1.0, hypotensive, tachycardic and tachypneic with fever, blood cultures x2 pending - head and c-spine CT negative - A/P CT negative - MRI brain ordered - consider neuro consult pending MRI results - given 2L NS in ED, hypotensive, fluid bolus LR ordered - monitor CBC and BMP melena - unable to perform FOBT - hgb 11.1, hct 34.8, MCV 69.7 - no need for blood transfusion at this time - pantoprazole 40mg BID - NPO - consider GI consult if hgb drops microscopic hematuria, - no gross hematuria per pt - monitor for clots in urine, if present consider CBI and urology consult full code VTE prophy: Pneumoboots, anticoagulant contraindicated due to possible GI bleed Patient with sepsis and new onset seizure secondary to flu, requiring admission for at least 2 midnights stay for IV fluids and monitoring. <Mehul Dewey MD - Last Filed: 06/08/24 06:07> Quality Stroke Does the patient have a stroke diagnosis?: No <Savanna Mcmahan PA-C - Last Filed: 06/08/24 05:59> VTE Prior VTE?: No <Savanna Mcmahan PA-C - Last Filed: 06/08/24 05:59> VTE Risk Level:: Medical - moderate - high <Savanna Mcmahan PA-C - Last Filed: 06/08/24 05:59> VTE Device Contraindication: N/A - Device Ordered <Savanna Mcmahan PA-C - Last Filed: 06/08/24 05:59> VTE Drug Contraindication: Treatment Not Indicated <Savanna Mcmahan PA-C - Last Filed: 06/08/24 05:59>
[2024-06-08] MEDS: LACTATED RINGERS 2173.71 ML IV (05:57)
[2024-06-08] MEDS: Oseltamivir Phosphate 75 MG CAPSULE PO ×2 (06:26→17:52)
[2024-06-08 08:35] LABS: Iron 13 mcg/dL (30-160); Percent Iron Saturation 6 % (15-50); Total Iron Binding Capacity 232 mcg/dL (228-428); Unsaturated Iron Binding 219 ug/dL
--- NOTE | 2024-06-08 10:34 | PHA.MEDREC ---
Pharmacy Consult ? Medication Reconciliation Pharmacy has completed the medication reconciliation.
[2024-06-08] MEDS: Lactated Ringers 1,000 ML 100 ML IVCONT (11:10)
[2024-06-08] MEDS: Acetaminophen 325 MG TABLET 650 MG PO (11:10)
--- NOTE | 2024-06-08 14:18 | PM.EVENT ---
Event Note Date of Service: 06/08/24 Event Note: The patient seen and evaluated No recurrence of seizure No fever or chills Pending MRI low CK level stable H&H, Low iron profile, start PO Iron start diet Continue Tamiflu Time Spent With Patient Time: Total time managing care of this patient today ____ minutes.
--- NOTE | 2024-06-08 15:00 | MHC.CM.PN ---
Addendum entered by April Rehman 06/08/24 15:03: Benites form given Original Note: Pt lives with her family, she does not have a PCP, brochure was given to her. She is functionally independent, no home health services or DME. HCP discussed, she declined to complete form. She said she will call an Uber to get home at [place]. DCP: home, self care. CM to follow for DC needs.
[2024-06-08] MEDS: Butalb/Acetamin/Caff 50/325/40 TABLET 2 TAB PO ×2 (16:21→21:57)
[2024-06-08] MEDS: guaiFEN/Codeine SF 200/20/10ML 10 ML LIQUID PO ×2 (16:22→21:56)
[2024-06-08] MEDS: Ferrous Sulfate 324 MG TABLET.DR PO (17:52)
[2024-06-09 04:00] VITALS: BP 98/58; PULSE 100; RESP 24; TEMP 38.5; O2SAT 98
[2024-06-09] MEDS: guaiFEN/Codeine SF 200/20/10ML 10 ML LIQUID PO ×2 (04:39→17:50)
[2024-06-09] MEDS: ondansetron HCL 4 MG/2 ML VIAL IVPUSH ×2 (04:39→09:57)
[2024-06-09] MEDS: Oseltamivir Phosphate 75 MG CAPSULE PO ×2 (04:39→17:49)
[2024-06-09] MEDS: Acetaminophen 325 MG TABLET 650 MG PO ×2 (04:39→17:50)
[2024-06-09] MEDS: Pantoprazole Sodium 40 MG/10 ML VIAL IVPUSH ×2 (04:39→17:49)
[2024-06-09 06:51] LABS: MANUAL DIFF FLAG NO
[2024-06-09 07:06] LABS: Anion Gap 9 (12-20); Blood Urea Nitrogen 3 mg/dL (9-16); Calcium 8.2 mg/dL (8.4-10.2); Carbon Dioxide 24 mmol/L (22-29); Chloride 110 mmol/L (96-108); Creatinine Clr Calc Pharmacy 82.6; Estimated Glomerular Filt Rate > 60; Glucose Random 104 mg/dL (60-115); Potassium 3.3 mmol/L (3.3-5.1); Sodium 140 mmol/L (135-145)
[2024-06-09 07:10] LABS: Basophils Percent Auto 0.5 % (0-2); Eosinophils Percent Auto 0.2 % (0-4); Hemoglobin 10.2 g/dl (12.0-16.0); Imm Gran Abs Auto 0.02 X10*3/uL (0.00-0.03); Imm Gran Pct Auto 0.5 % (0.0-0.4); Lymphocytes Absolute Auto 1.1 X10*3/uL (1.2-4.9); Lymphocytes Percent Auto 27.5 % (20-40); Mean Corpuscular HGB Conc 31.9 g/dl (31.0-35.0); Mean Corpuscular Hemoglobin 22.2 pg (27.0-33.0); Mean Corpuscular Volume 69.6 fL (80.0-98.0); Mean Platelet Volume 10.6 fL (9.4-12.3); Monocytes Absolute Auto 0.6 X10*3/uL (0.1-1.2); Monocytes Percent Auto 14.9 % (2-11); Neutrophils Absolute Auto 2.3 x10*3/uL (2.0-8.3); Neutrophils Percent Auto 56.4 % (45-73); Platelet Count 192 X10*3/uL (160-400); Red Cell Distribution Width 13.7 % (11.0-16.0); White Blood Count 4.2 X10*3/uL (4.8-10.8)
[2024-06-09 07:38] VITALS: BP 92/55; PULSE 73; RESP 14; TEMP 37.1; O2SAT 99
[2024-06-09] MEDS: Lactated Ringers 1,000 ML 100 ML IVCONT ×2 (07:39→17:49)
[2024-06-09] MEDS: 0.9 % Sodium Chloride Flush 3 ML SYRINGE IVFLUSH ×2 (07:43→17:49)
[2024-06-09] MEDS: Ferrous Sulfate 324 MG TABLET.DR PO ×2 (09:11→17:50)
[2024-06-09 11:30] VITALS: BP 96/54; PULSE 84; RESP 12; TEMP 36.6; O2SAT 100
--- NOTE | 2024-06-09 12:34 | HO.PM.IMPN ---
Subjective Subjective Date of Service: 06/09/24 Interval History: seen and evaluated Feels better Had fever of 102 overnigt no seizures reported having blood with stool Review of Systems Review of Systems: Yes all other systems are reviewed and are negative Physical Exam Vital Signs: Vital Signs: Last Vital Signs Temp 97.9 F 06/09/24 11:30 Pulse 84 06/09/24 11:30 Resp 12 06/09/24 11:30 BP 96/54 L 06/09/24 11:30 Pulse Ox 100 06/09/24 11:30 O2 Del Method Room Air 06/09/24 11:30 BMI result Body Mass Index 28.3 Const: Other: Constitutional : Awake, interactive, not in distress Neck : Normal inspection, Supple Cardiovascular : RRR, no JVP, no lower extremity edema Respiratory : fair bilateral air entry, no crackles, wheezes or rhonchi Gastrointestinal: soft, lax, Normal bowel sounds, Non tender Skin : Warm, Dry Neurological : Alert & oriented x3, No focal deficit Objective Data Active Medications Acetaminophen (Acetaminophen 325 Mg Tablet) 650 mg PO Q6H PRN PRN Reason: Pain, Mild 1-3,fever,headache Last Admin: 06/09/24 04:39 Dose: 650 mg Documented By: RITESH Acetaminophen/Butalbital/Caffeine (Butalb/Acetamin/Caff 50/325/40 Tablet) 2 tab PO Q4H PRN PRN Reason: Headache Last Admin: 06/08/24 21:57 Dose: 2 tab Documented By: RITESH Calcium Carbonate (Calcium Carbonate 750 Mg Tab.Chew) 750 mg PO Q4H PRN PRN Reason: Heartburn Ferrous Sulfate (Ferrous Sulfate 324 Mg Tablet.Dr) 324 mg PO BIDWM COUNT INCLUDES THE [facility] Last Admin: 06/09/24 09:11 Dose: 324 mg Documented By: ROSITA Guaifenesin/Codeine Phosphate (Guaifen/Codeine Sf 200/20/10ml 10 Ml Liquid) 10 ml PO Q4H PRN PRN Reason: Cough Last Admin: 06/09/24 04:39 Dose: 10 ml Documented By: RITESH Lactated Ringer's (Lr) 1,000 mls @ 100 mls/hr IVCONT .Q10H COUNT INCLUDES THE [facility] Last Admin: 06/09/24 07:39 Dose: 100 mls/hr Documented By: ROSITA Magnesium Hydroxide (Milk Of Magnesia 30 Ml Oral.Susp) 30 ml PO DAILY PRN PRN Reason: Constipation Melatonin (Melatonin 3 Mg Tablet) 6 mg PO BEDTIME PRN PRN Reason: Insomnia Ondansetron HCl (Ondansetron Hcl 4 Mg/2 Ml Vial) 4 mg IVPUSH Q8H PRN PRN Reason: Nausea and Vomiting Last Admin: 06/09/24 09:57 Dose: 4 mg Documented By: ROSITA Comments: MD angelita cr to administer early. Oseltamivir Phosphate (Oseltamivir Phosphate 75 Mg Capsule) 75 mg PO Q12H COUNT INCLUDES THE [facility] Stop: 06/12/24 18:16 Last Admin: 06/09/24 04:39 Dose: 75 mg Documented By: RITESH Pantoprazole Sodium (Pantoprazole Sodium 40 Mg/10 Ml Vial) 40 mg IVPUSH BID@0630,1630 COUNT INCLUDES THE [facility] Last Admin: 06/09/24 04:39 Dose: 40 mg Documented By: RITESH Sodium Chloride (0.9 % Sodium Chloride Flush 3 Ml Syringe) 3 ml IVFLUSH QSHIFT COUNT INCLUDES THE [facility] Last Admin: 06/09/24 07:43 Dose: 3 ml Documented By: ROSITA Labs 06/09/24 06:33 06/09/24 06:33 Labs: Laboratory Results - last 24 hr 06/09/24 06:33 MCV 69.6 L MCH 22.2 L MCHC 31.9 RDW 13.7 Plt Count 192 MPV 10.6 Immature Gran % (Auto) 0.5 H Neut % (Auto) 56.4 Lymph % (Auto) 27.5 [place] % (Auto) 14.9 H Eos % (Auto) 0.2 Baso % (Auto) 0.5 Lymph # (Auto) 1.1 L [place] # (Auto) 0.6 Eos # (Auto) 0.0 Baso # (Auto) 0.0 Abs Immat Gran (auto) 0.02 Absolute Neuts (auto) 2.3 Absolute Nucleated RBC 0.000 Nucleated RBC % (auto) 0.0 Anion Gap 9 L Estim Creat Clear Calc 82.6 Estimated GFR > 60 Random Glucose 104 Calcium 8.2 L Microbiology Microbiology Results: Microbiology 06/07/24 23:25 Blood Culture - Preliminary Blood - Venous No growth after 24 hours. 06/07/24 23:25 Blood Culture - Preliminary Blood - Venous No growth after 24 hours. Assessment and Plan (1) Sepsis: Status: Acute (2) Microscopic hematuria: Status: Acute (3) New onset seizure: Status: Acute (4) Influenza B: Status: Acute Plan Patient is a 38-year-old female with no significant past medical history who presented to the ED after a tonic-clonic seizure, with associated fever, headache, nausea, vomiting, diarrhea, melena, cough and fever for the past 2 days. new onselt seizure, likely febrile due to flu B, UA + microheme, likely rhabdo, +melena but unable to perform FOBT. viral sepsis due to flu B given 2L NS in ED, hypotensive, fluid bolus LR ordered tolerating Tamiflu New Seizure Likely related to fever and acute illness no recurrence while inpatient MRI brain negative for any acute findings get Neurology evaluation hold on seizure medications for now melena with ADRI Stable H&H Pantoprazole 40mg BID iron supplement tolerating PO GI consult microscopic hematuria normal KFT. outpatient follow up full code VTE prophy: Pneumoboots, anticoagulant contraindicated due to possible GI bleed Patient with sepsis and new onset seizure secondary to flu, requiring overnight stay for IV fluids and specialists consults Quality Stroke Does the patient have a stroke diagnosis?: No VTE Prior VTE?: No VTE Risk Level:: Medical - moderate - high VTE Device Contraindication: N/A - Device Ordered VTE Drug Contraindication: Treatment Not Indicated
--- NOTE | 2024-06-09 15:14 | PM.GICN ---
History of Present Illness Data of Consult Service Date: 06/09/24 Requesting physician: Dayna Shelton Primary Care Provider: Unknown Physician HPI Reason for consult: bloody stool, black stool, ADRI. 38 year old AA female [place] [facility] [place] after a tonic-clonic seizure, with associated fever, headache, nausea, vomiting, diarrhea, melena, cough and fever for the preceeding 2 days. She had a single seizure episode and denied past hx of seizure disorder. Pt reports diarrhea with black stools on 06/05, 06/06 and 06/07 and denies any BM yesterday and today. She reports one episode of vomiting after taking an iron pill. Pt denies past hx of PUD or GI bleeding. Pt notes epigastric pain and bilateral groin pain and nausea with coughing spells She denies taking NSAIDS or Pepto-Bismol. She has intermittent episodes of severe constipation for the past several years when she has no BM x several days and has to go to the ED for an enema for relief of constipation. 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 Pt's maternal uncle of colon cancer in his 60's and Mom has problems with constipation. 06/07/[address] SCAN SHOWED: 1. No acute findings. 2. Reason for rectal bleeding is not apparent on the CT. Review of Systems Constitutional: Constitutional: Reports body ache(s), Reports fatigue, Reports fever(s) and Reports headache(s) Eyes: Eyes: Denies change in vision and Denies photophobia ENT: Reports headache(s), Reports nasal congestion, Reports nasal discharge and Denies sore throat Cardiovascular: Cardiovascular: Denies chest pain, Denies rapid heart rate, Denies leg edema, Denies lightheadedness, Denies dyspnea and Denies dyspnea on exertion Respiratory: Respiratory: Denies chest congestion, Reports cough, Denies dyspnea, Denies dyspnea on exertion and Denies wheezing Gastrointestinal: Gastrointestinal: Reports abdominal pain, Reports melena, Reports diarrhea, Denies nausea and Denies vomiting Genitourinary: Genitourinary: Denies hematuria, Denies dysuria and Denies urinary urgency Musculoskeletal: Musculoskeletal: Reports myalgias Integumentary/Breasts: Skin/Breast: Denies rash Neurologic: Denies confusion, Reports headache(s), Reports convulsions and Reports seizure-like activity Psychiatric: Psychiatric: Denies confusion Endocrine: Endocrine: Reports fatigue Hematologic/Lymphatic: Hematologic/Lymphatic: Denies easy bleeding and Denies easy bruising Allergic/Immunologic: Allergic/Immunologic: Denies wheezing PMFSH Social History Social History Household Members: Family Housing: Apartment Do you presently have visiting nurse or other home services: No Alcohol intake: never Patient Tobacco Use Status: Never used Tobacco service: No Meds Allergies Allergy/AdvReac Type Severity Reaction Status Date / Time latex Allergy Anaphylaxis Verified 06/08/24 14:38 Latex, Natural Rubber Allergy Anaphylaxis Verified 06/08/24 14:38 Penicillins [PCN] Allergy Anaphylaxis Verified 06/07/24 22:17 Active Medications: Current Medications Acetaminophen (Acetaminophen 325 Mg Tablet) 650 mg PO Q6H PRN PRN Reason: Pain, Mild 1-3,fever,headache Last Admin: 06/09/24 04:39 Dose: 650 mg Acetaminophen/Butalbital/Caffeine (Butalb/Acetamin/Caff 50/325/40 Tablet) 2 tab PO Q4H PRN PRN Reason: Headache Last Admin: 06/08/24 21:57 Dose: 2 tab Calcium Carbonate (Calcium Carbonate 750 Mg Tab.Chew) 750 mg PO Q4H PRN PRN Reason: Heartburn Ferrous Sulfate (Ferrous Sulfate 324 Mg Tablet.Dr) 324 mg PO BIDWM [facility] Last Admin: 06/09/24 09:11 Dose: 324 mg Guaifenesin/Codeine Phosphate (Guaifen/Codeine Sf 200/20/10ml 10 Ml Liquid) 10 ml PO Q4H PRN PRN Reason: Cough Last Admin: 06/09/24 04:39 Dose: 10 ml Lactated Ringer's (Lr) 1,000 mls @ 100 mls/hr IVCONT .Q10H [facility] Last Admin: 06/09/24 07:39 Dose: 100 mls/hr Lorazepam (Lorazepam 2 Mg/Ml Vial) 2 mg IVPUSH ONCE PRN PRN Reason: Seizures Magnesium Hydroxide (Milk Of Magnesia 30 Ml Oral.Susp) 30 ml PO DAILY PRN PRN Reason: Constipation Melatonin (Melatonin 3 Mg Tablet) 6 mg PO BEDTIME PRN PRN Reason: Insomnia Ondansetron HCl (Ondansetron Hcl 4 Mg/2 Ml Vial) 4 mg IVPUSH Q8H PRN PRN Reason: Nausea and Vomiting Last Admin: 06/09/24 09:57 Dose: 4 mg Oseltamivir Phosphate (Oseltamivir Phosphate 75 Mg Capsule) 75 mg PO Q12H [facility] Stop: 06/12/24 18:16 Last Admin: 06/09/24 04:39 Dose: 75 mg Pantoprazole Sodium (Pantoprazole Sodium 40 Mg/10 Ml Vial) 40 mg IVPUSH BID@0630,1630 [facility] Last Admin: 06/09/24 04:39 Dose: 40 mg Sodium Chloride (0.9 % Sodium Chloride Flush 3 Ml Syringe) 3 ml IVFLUSH QSHIFT [facility] Last Admin: 06/09/24 07:43 Dose: 3 ml Home Medications ?Medication ?Instructions ?Recorded ?Confirmed ?Last Taken ?Type No Known Home Meds 06/08/24 06/08/24 Unknown History Physical Exam Vital Signs: Vital Signs: Last Vital Signs Temp 97.9 F 06/09/24 11:30 Pulse 84 06/09/24 11:30 Resp 12 06/09/24 11:30 BP 96/54 L 06/09/24 11:30 Pulse Ox 100 06/09/24 11:30 O2 Del Method Room Air 06/09/24 11:30 BMI result Body Mass Index 28.3 Const: General: No confusion Nutritional Appearance: average body habitus Orientation/consciousness: No confusion Limitations: no limitations HEENT: Head: Yes normal to inspection Ears: hearing grossly normal bilaterally Mouth: Normal oral and palatal mucosa present Eyes: Sclerae: sclerae normal Pupils: Equal, round and reactive pupils present Direct Ophthalmoscopy: No photophobia Neck: Neck: Yes normal visual inspection Chest: Chest palpation & inspection: normal inspection of the chest Resp: Effort & Inspection: normal respiratory effort Auscultation: clear to auscultation bilaterally Cardio: Palpation: normal PMI Rate: regular rate Rhythm: regular rhythm Heart sounds: S1 normal heart sound present, S2 normal heart sound present and no murmurs GI: Palpation (GI): Soft to palpation, nontender and No hepatosplenomegaly present Auscultation: normal bowel sounds Rectal Exam - Female: deferred Skin: General skin exam: no rashes or lesions noted Neuro: General: No confusion Cranial nerves: Yes Equal, round and reactive pupils present Psych: Appearance: grossly normal Mental Status: mental status grossly normal Results Labs 06/09/24 06:33 06/09/24 06:33 Labs: Short CBC 06/09/24 Range/Units 06:33 WBC 4.2 L (4.8-10.8) X10*3/uL Hgb 10.2 L (12.0-16.0) g/dl Hct 32.0 L (37.0-47.0) % Plt Count 192 (160-400) X10*3/uL BMP 06/09/24 06:33 Sodium 140 Potassium 3.3 Chloride 110 H Carbon Dioxide 24 BUN 3 L Creatinine 0.88 Calcium 8.2 L Microbiology Microbiology Results: Microbiology 06/07/24 23: Blood - Venous Blood Culture - Preliminary No growth after 24 hours. 06/07/24 23:25 Blood - Venous Blood Culture - Preliminary No growth after 24 hours. Assessment and Plan (1) Black stool: Status: Acute Plan 38 year old AA female [place] [facility] [place] after a tonic-clonic seizure, with associated fever, headache, nausea, vomiting, diarrhea, melena, cough and fever for the preceeding 2 days. She had a single seizure episode and denied past hx of seizure disorder. Pt reports diarrhea with black stools on 06/05, 06/06 and 06/07 and denies any BM yesterday and today. She reports one episode of vomiting after taking an iron pill. Melena likely due to erosive esophagitis, gastritis, PUD or MW tear. RECOMMENDATIONS: 1. Agree with IV fluids and PPI 2. Monitor CBC daily. If CBC remains stable, pt can be discharged home on PO Omeprazole twice a day 3. If pt has a significant decline in H&H, can proceed with EGD in the am (NPO order placed) Given recent Influenza infection and cough, best to schedule EGD as an outpatient after her respiratory symptoms have subsided. Procedures Date of Service Date of Service: 06/09/24
[2024-06-09 15:40] VITALS: BP 99/65; PULSE 79; RESP 14; TEMP 37; O2SAT 99
[2024-06-09 19:07] VITALS: BP 100/60; PULSE 83; RESP 16; TEMP 37.4; O2SAT 98
[2024-06-10] VITALS (7 sets, daily range): BP systolic 96–105; BP diastolic 53–74; PULSE 64–91; RESP 14–20; TEMP 36.6–37.1; O2SAT 97–100
--- NOTE | 2024-06-10 00:47 | PC.NURSE ---
Patient reports that she is not sure where the blood is coming from. She states she urinated tonight and went to wipe and more blood than before. Not sure if its coming from vagina or rectum. Reporting abdominal pain at level of umbillicus.
[2024-06-10] MEDS: Lactated Ringers 1,000 ML 100 ML IVCONT (04:03)
[2024-06-10] MEDS: ondansetron HCL 4 MG/2 ML VIAL IVPUSH ×2 (04:07→20:29)
[2024-06-10] MEDS: Pantoprazole Sodium 40 MG/10 ML VIAL IVPUSH ×2 (05:34→17:25)
[2024-06-10 07:08] LABS: MANUAL DIFF FLAG NO
[2024-06-10 07:24] LABS: Basophils Percent Auto 0.2 % (0-2); Eosinophils Absolute Auto 0.1 X10*3/uL (0.0-0.4); Eosinophils Percent Auto 1.6 % (0-4); Hematocrit 31.5 % (37.0-47.0); Hemoglobin 9.8 g/dl (12.0-16.0); Imm Gran Abs Auto 0.01 X10*3/uL (0.00-0.03); Imm Gran Pct Auto 0.2 % (0.0-0.4); Lymphocytes Absolute Auto 1.5 X10*3/uL (1.2-4.9); Mean Corpuscular HGB Conc 31.1 g/dl (31.0-35.0); Mean Corpuscular Hemoglobin 21.9 pg (27.0-33.0); Mean Corpuscular Volume 70.3 fL (80.0-98.0); Mean Platelet Volume 10.4 fL (9.4-12.3); Monocytes Absolute Auto 0.5 X10*3/uL (0.1-1.2); Monocytes Percent Auto 8.9 % (2-11); Neutrophils Absolute Auto 3.1 x10*3/uL (2.0-8.3); Neutrophils Percent Auto 60.1 % (45-73); Platelet Count 161 X10*3/uL (160-400); Red Blood Count 4.48 X10*6/uL (4.20-5.50); Red Cell Distribution Width 13.6 % (11.0-16.0); White Blood Count 5.1 X10*3/uL (4.8-10.8)
[2024-06-10 07:38] LABS: Anion Gap 8 (12-20); Blood Urea Nitrogen 4 mg/dL (9-16); Calcium 8.1 mg/dL (8.4-10.2); Carbon Dioxide 27 mmol/L (22-29); Chloride 109 mmol/L (96-108); Creatinine Clr Calc Pharmacy 86.6; Estimated Glomerular Filt Rate > 60; Glucose Random 93 mg/dL (60-115); Potassium 3.8 mmol/L (3.3-5.1); Sodium 140 mmol/L (135-145)
[2024-06-10] MEDS: guaiFEN/Codeine SF 200/20/10ML 10 ML LIQUID PO (07:48)
[2024-06-10] MEDS: Ciprofloxacin Lactate/D5W 400 MG/200 ML PIGGYBACK 200 MG IV ×2 (09:33→20:20)
--- NOTE | 2024-06-10 11:58 | P.CNNE_ITS ---
History of Present Illness Data of Consult Service Date: 06/10/24 Primary Care Provider: Unknown Physician HPI Reason for consult: SEIZURE 38 YEARS OLD WOMAN WITH NO PREVIOUS PERSONAL HISTORY OF SEIZURE DISORDER THOUGH HER CHILDREN SUFFERED FROM FEBRILE SEIZURE DISORDER. APPARENTLY SHE CAME TO HOSPITAL AFTER A GRAND MAL SEIZURE. SHE SAID THAT SHE HAD NO MEMORY OF WHAT HAD HAPPENED AND WITNESSES ACCOUNT WAS NOT AVAILABLE. HE HAD A HEAD CT AND MRI OF BRAIN THAT DID NOT REVEAL ANY SIGNIFICANT ABNORMALITY. NOW SHE WAS FEELING BETTER. SHE DENIED EVER HAVING ANY SEIZURE. Review of Systems 2 Review of Systems: RECENT COLD AND FLU-LIKE SYMPTOMS WITH NAUSEA AND VOMITING. [facility] Social History Social History Household Members: Family Housing: Apartment Do you presently have visiting nurse or other home services: No Alcohol intake: never Patient Tobacco Use Status: Never used Tobacco service: No Meds Allergies Allergy/AdvReac Type Severity Reaction Status Date / Time latex Allergy Anaphylaxis Verified 06/08/24 14:38 Latex, Natural Rubber Allergy Anaphylaxis Verified 06/08/24 14:38 Penicillins [PCN] Allergy Anaphylaxis Verified 06/07/24 22:17 Active Medications: Current Medications Acetaminophen (Acetaminophen 325 Mg Tablet) 650 mg PO Q6H PRN PRN Reason: Pain, Mild 1-3,fever,headache Last Admin: 06/09/24 17:50 Dose: 650 mg Acetaminophen/Butalbital/Caffeine (Butalb/Acetamin/Caff 50/325/40 Tablet) 2 tab PO Q4H PRN PRN Reason: Headache Last Admin: 06/08/24 21:57 Dose: 2 tab Calcium Carbonate (Calcium Carbonate 750 Mg Tab.Chew) 750 mg PO Q4H PRN PRN Reason: Heartburn Ferrous Sulfate (Ferrous Sulfate 324 Mg Tablet.Dr) 324 mg PO BIDWM [facility] Last Admin: 06/10/24 07:22 Dose: Not Given Guaifenesin/Codeine Phosphate (Guaifen/Codeine Sf 200/20/10ml 10 Ml Liquid) 10 ml PO Q4H PRN PRN Reason: Cough Last Admin: 06/10/24 07:48 Dose: 10 ml Ciprofloxacin (Cipro) 400 mg in 200 mls @ 200 mls/hr IV Q12H [facility] Last Infusion: 06/10/24 11:03 Dose: Infused Lorazepam (Lorazepam 2 Mg/Ml Vial) 2 mg IVPUSH ONCE PRN PRN Reason: Seizures Magnesium Hydroxide (Milk Of Magnesia 30 Ml Oral.Susp) 30 ml PO DAILY PRN PRN Reason: Constipation Melatonin (Melatonin 3 Mg Tablet) 6 mg PO BEDTIME PRN PRN Reason: Insomnia Ondansetron HCl (Ondansetron Hcl 4 Mg/2 Ml Vial) 4 mg IVPUSH Q8H PRN PRN Reason: Nausea and Vomiting Last Admin: 06/10/24 04:07 Dose: 4 mg Oseltamivir Phosphate (Oseltamivir Phosphate 75 Mg Capsule) 75 mg PO Q12H [facility] Stop: 06/12/24 18:16 Last Admin: 06/10/24 05:30 Dose: Not Given Pantoprazole Sodium (Pantoprazole Sodium 40 Mg/10 Ml Vial) 40 mg IVPUSH BID@0630,1630 [facility] Last Admin: 06/10/24 05:34 Dose: 40 mg Sodium Chloride (0.9 % Sodium Chloride Flush 3 Ml Syringe) 3 ml IVFLUSH QSHIFT [facility] Last Admin: 06/10/24 07:22 Dose: Not Given Home Medications ?Medication ?Instructions ?Recorded ?Confirmed ?Last Taken ?Type No Known Home Meds 06/08/24 06/08/24 Unknown History Physical Exam 2 Vital Signs: Vital Signs: Last Vital Signs Temp 98 F 06/10/24 10:58 Pulse 64 06/10/24 10:58 Resp 18 06/10/24 10:58 BP 103/68 06/10/24 10:58 Pulse Ox 100 06/10/24 10:58 O2 Del Method Room Air 06/10/24 10:58 BMI result Body Mass Index 28.3 Neuro: Other: SHE IS ALERT AND AWAKE WITH NORMAL SPONTANEITY OF SPEECH FLUENCY COMPREHENSION AND AFFECT. SHE HAS NOT IN ANY DISTRESS. FACE IS SYMMETRICAL. VISUAL SANTAMARIA ARE FULL. THERE IS NO FOCAL WEAKNESS. Results Labs 06/10/24 06:37 06/10/24 06:37 Labs: Short CBC 06/10/24 Range/Units 06:37 WBC 5.1 (4.8-10.8) X10*3/uL Hgb 9.8 L (12.0-16.0) g/dl Hct 31.5 L (37.0-47.0) % Plt Count 161 (160-400) X10*3/uL BMP 06/10/24 06:37 Sodium 140 Potassium 3.8 Chloride 109 H Carbon Dioxide 27 BUN 4 L Creatinine 0.84 [address] AND MRI OF BRAIN DID NOT REVEAL ANY SIGNIFICANT ABNORMALITY. Microbiology Microbiology Results: Microbiology 06/07/24 23:25 Blood - Venous Blood Culture - Preliminary Prelim: GNR Gram Stain only 06/07/24 23:25 Blood - Venous Blood Culture - Preliminary No growth after 48 hours. Assessment and Plan (1) New onset seizure: Status: Acute 38 YEARS OLD WOMAN WITH NO PREVIOUS HISTORY OF SEIZURE DISORDER BUT HER CHILDREN SUFFERED FROM FEBRILE SEIZURE DISORDER APPARENTLY HAD A SEIZURE OR CONVULSION WHILE HAVING TEMPERATURE WANTED TO F. HEAD CT AND MRI DID NOT REVEAL ANY SIGNIFICANT ABNORMALITY. SHE WAS FEELING BETTER. AT THIS TIME, MY IMPRESSION IS THAT THIS WAS PROBABLY A GENETIC BASED FEBRILE SEIZURE. I WOULD ARRANGE AN OUTPATIENT EEG IN A WEEK OR 2 TO RULE OUT UNDERLYING TENDENCY FOR EPILEPTIC PATHOLOGY. OTHERWISE I AM NOT RECOMMENDING ANY MEDICINE AT THIS TIME. SHE SHOULD TAKE APPROPRIATE PRECAUTIONS AND NOT DRIVE FOR A WHILE AND NOT SWIM ALONE OR SITTING IN A SOAKING TUB ALONE. Procedures Date of Service Date of Service: 06/10/24
--- NOTE | 2024-06-10 13:53 | P.PNIM_ITS ---
Subjective Subjective Date of Service: 06/10/24 Interval History: seen and evaluated Feels better No fever last 24 hour Blood cultures growing GNR in 1 set no seizures reported having blood with wiping Review of Systems Review of Systems: Yes all other systems are reviewed and are negative Physical Exam 2 Vital Signs: Vital Signs: Last Vital Signs Temp 98 F 06/10/24 10:58 Pulse 64 06/10/24 10:58 Resp 18 06/10/24 10:58 BP 103/68 06/10/24 10:58 Pulse Ox 100 06/10/24 10:58 O2 Del Method Room Air 06/10/24 10:58 BMI result Body Mass Index 28.3 Const: Other: Constitutional : Awake, interactive, not in distress Neck : Normal inspection, Supple Cardiovascular : RRR, no JVP, no lower extremity edema Respiratory : fair bilateral air entry, no crackles, wheezes or rhonchi Gastrointestinal: soft, lax, Normal bowel sounds, Non tender Skin : Warm, Dry Neurological : Alert & oriented x3, No focal deficit Objective Data Active Medications Acetaminophen (Acetaminophen 325 Mg Tablet) 650 mg PO Q6H PRN PRN Reason: Pain, Mild 1-3,fever,headache Last Admin: 06/09/24 17:50 Dose: 650 mg Documented By: ROSITA Acetaminophen/Butalbital/Caffeine (Butalb/Acetamin/Caff 50/325/40 Tablet) 2 tab PO Q4H PRN PRN Reason: Headache Last Admin: 06/08/24 21:57 Dose: 2 tab Documented By: RITESH Calcium Carbonate (Calcium Carbonate 750 Mg Tab.Chew) 750 mg PO Q4H PRN PRN Reason: Heartburn Ferrous Sulfate (Ferrous Sulfate 324 Mg Tablet.Dr) 324 mg PO BIDWM [facility] Last Admin: 06/10/24 07:22 Dose: Not Given Documented By: ROSITA Non-Admin Reason: Physician Held Med Guaifenesin/Codeine Phosphate (Guaifen/Codeine Sf 200/20/10ml 10 Ml Liquid) 10 ml PO Q4H PRN PRN Reason: Cough Last Admin: 06/10/24 07:48 Dose: 10 ml Documented By: ROSITA Ciprofloxacin (Cipro) 400 mg in 200 mls @ 200 mls/hr IV Q12H [facility] Last Infusion: 06/10/24 11:03 Dose: Infused Documented By: ROSITA Lorazepam (Lorazepam 2 Mg/Ml Vial) 2 mg IVPUSH ONCE PRN PRN Reason: Seizures Magnesium Hydroxide (Milk Of Magnesia 30 Ml Oral.Susp) 30 ml PO DAILY PRN PRN Reason: Constipation Melatonin (Melatonin 3 Mg Tablet) 6 mg PO BEDTIME PRN PRN Reason: Insomnia Ondansetron HCl (Ondansetron Hcl 4 Mg/2 Ml Vial) 4 mg IVPUSH Q8H PRN PRN Reason: Nausea and Vomiting Last Admin: 06/10/24 04:07 Dose: 4 mg Documented By: DELMER Oseltamivir Phosphate (Oseltamivir Phosphate 75 Mg Capsule) 75 mg PO Q12H [facility] Stop: 06/12/24 18:16 Last Admin: 06/10/24 05:30 Dose: Not Given Documented By: DELMER Non-Admin Reason: NPO Pantoprazole Sodium (Pantoprazole Sodium 40 Mg/10 Ml Vial) 40 mg IVPUSH BID@0630,1630 [facility] Last Admin: 06/10/24 05:34 Dose: 40 mg Documented By: DELMER Sodium Chloride (0.9 % Sodium Chloride Flush 3 Ml Syringe) 3 ml IVFLUSH QSHIFT [facility] Last Admin: 06/10/24 07:22 Dose: Not Given Documented By: ROSITA Non-Admin Reason: IV Running Labs 06/10/24 06:37 06/10/24 06:37 Labs: Laboratory Results - last 24 hr 06/10/24 06:37 MCV 70.3 L MCH 21.9 L MCHC 31.1 RDW 13.6 Plt Count 161 MPV 10.4 Immature Gran % (Auto) 0.2 Neut % (Auto) 60.1 Lymph % (Auto) 29.0 [place] % (Auto) 8.9 Eos % (Auto) 1.6 Baso % (Auto) 0.2 Lymph # (Auto) 1.5 [place] # (Auto) 0.5 Eos # (Auto) 0.1 Baso # (Auto) 0.0 Abs Immat Gran (auto) 0.01 Absolute Neuts (auto) 3.1 Absolute Nucleated RBC 0.000 Nucleated RBC % (auto) 0.0 Anion Gap 8 L Estim Creat Clear Calc 86.6 Estimated GFR > 60 Random Glucose 93 Calcium 8.1 L Microbiology Microbiology Results: Microbiology 06/07/24 23:25 Blood Culture - Preliminary Blood - Venous Prelim: GNR Gram Stain only 06/07/24 23:25 Blood Culture - Preliminary Blood - Venous No growth after 48 hours. Assessment and Plan (1) Sepsis: Status: Acute (2) Microscopic hematuria: Status: Acute (3) Black stool: Status: Acute (4) New onset seizure: Status: Acute (5) Influenza B: Status: Acute (6) Gram-negative bacteremia: Status: Acute Plan Patient is a 38-year-old female with no significant past medical history who presented to the ED after a tonic-clonic seizure, with associated fever, headache, nausea, vomiting, diarrhea, melena, cough and fever for the past 2 days. new onselt seizure, likely febrile due to flu B, UA + microheme, likely rhabdo, +melena but unable to perform FOBT. viral sepsis due to flu B given 2L NS in ED, hypotensive, fluid bolus LR ordered tolerating Tamiflu GNR Bacteremia pending final cultures on Cipro given her allergies New Seizure Likely related to fever and acute illness no recurrence while inpatient MRI brain negative for any acute findings Neurology evaluation, outpatient EEG in q-2 weeks Not to swim, sit in tub alone or drive for a while hold on seizure medications for now melena with ADRI Stable H&H Pantoprazole 40mg BID iron supplement tolerating PO GI following, Outpatient EGD microscopic hematuria Could be vaginal in origin normal KFT. outpatient follow up Check US Uterus full code VTE prophy: Pneumoboots, anticoagulant contraindicated due to possible GI bleed Patient with sepsis and new onset seizure secondary to flu, requiring overnight stay for IV fluids and IV antibitoics pending final cultures Quality Stroke Does the patient have a stroke diagnosis?: No VTE Prior VTE?: No VTE Risk Level:: Medical - moderate - high VTE Device Contraindication: N/A - Device Ordered VTE Drug Contraindication: Treatment Not Indicated
[2024-06-10] MEDS: Butalb/Acetamin/Caff 50/325/40 TABLET 2 TAB PO (14:15)
[2024-06-10] MEDS: Milk of Magnesia 30 ML ORAL.SUSP PO (14:15)
--- NOTE | 2024-06-10 15:17 | MHC.CM.PN ---
Per rounds, and EMR review, pt. requiring continued acute care for sepsis and new onset seizure. CM to follow for DC needs.
[2024-06-10 17:13] LABS: OBS Int Ctl Valid YES; OBS1 NEGATIVE (NEGATIVE)
[2024-06-10] MEDS: Oseltamivir Phosphate 75 MG CAPSULE PO (17:25)
[2024-06-10] MEDS: 0.9 % Sodium Chloride Flush 3 ML SYRINGE IVFLUSH (17:25)
[2024-06-10] MEDS: diphenhydrAMINE HCL 50 MG/ML VIAL 25 MG IVPUSH (19:01)
--- NOTE | 2024-06-10 19:34 | PM.EVENT ---
Event Note Date of Service: 06/10/24 Event Note: Pt with known allergy to seafood who reported some numbness and tingling on the tip of her tongue after mistakenly eating clam chowder. Pt reports she only had a ?very little bit? and almost immediately experienced symptoms. Pt was given Benadryl 25 mg IV and Solu-Medrol 40 mg IV. Pt seen and evaluated in her room where she is resting comfortably in bed. Pt denies any difficulty breathing, SOB, or feeling like her tongue is swollen or throat is closed off. Breathing unlabored and speaking in full sentences. No acute respiratory distress. Lungs CTA. No indication for additional workup or treatment at this time. Time Spent With Patient Time: Total time managing care of this patient today ____ minutes.
[2024-06-10] MEDS: methylPREDNISolone Sod Succ 40 MG/ML VIAL IVPUSH (20:20)
[2024-06-11 03:40] VITALS: BP 91/56; PULSE 52; RESP 16; TEMP 36.5; O2SAT 95
[2024-06-11 06:17] LABS: MANUAL DIFF FLAG NO
[2024-06-11 06:25] LABS: Basophils Percent Auto 0.3 % (0-2); Hematocrit 34.8 % (37.0-47.0); Hemoglobin 10.8 g/dl (12.0-16.0); Imm Gran Abs Auto 0.01 X10*3/uL (0.00-0.03); Imm Gran Pct Auto 0.3 % (0.0-0.4); Lymphocytes Absolute Auto 0.9 X10*3/uL (1.2-4.9); Lymphocytes Percent Auto 30.4 % (20-40); Mean Corpuscular Hemoglobin 21.8 pg (27.0-33.0); Mean Corpuscular Volume 70.3 fL (80.0-98.0); Mean Platelet Volume 10.6 fL (9.4-12.3); Monocytes Absolute Auto 0.2 X10*3/uL (0.1-1.2); Monocytes Percent Auto 6.3 % (2-11); Neutrophils Absolute Auto 1.8 x10*3/uL (2.0-8.3); Neutrophils Percent Auto 62.7 % (45-73); Platelet Count 200 X10*3/uL (160-400); Red Blood Count 4.95 X10*6/uL (4.20-5.50); Red Cell Distribution Width 13.6 % (11.0-16.0); White Blood Count 2.9 X10*3/uL (4.8-10.8)
[2024-06-11 06:35] LABS: Anion Gap 10 (12-20); Blood Urea Nitrogen 6 mg/dL (9-16); Calcium 8.7 mg/dL (8.4-10.2); Carbon Dioxide 23 mmol/L (22-29); Chloride 109 mmol/L (96-108); Creatinine Clr Calc Pharmacy 90.9; Estimated Glomerular Filt Rate > 60; Glucose Random 123 mg/dL (60-115); Potassium 4.3 mmol/L (3.3-5.1); Sodium 138 mmol/L (135-145)
[2024-06-11] MEDS: Oseltamivir Phosphate 75 MG CAPSULE PO (06:35)
[2024-06-11 07:03] VITALS: BP 99/64; PULSE 60; RESP 20; TEMP 37.2; O2SAT 100
[2024-06-11] MEDS: Ciprofloxacin Lactate/D5W 400 MG/200 ML PIGGYBACK 200 MG IV (08:32)
[2024-06-11] MEDS: 0.9 % Sodium Chloride Flush 3 ML SYRINGE IVFLUSH (08:33)
[2024-06-11 10:55] VITALS: BP 104/67; PULSE 75; RESP 18; TEMP 37.1; O2SAT 98
--- NOTE | 2024-06-11 11:10 | P.DS_ITS ---
DS: Providers Provider Date of Service: 06/11/24 Date of admission: 06/08/24 05:46 Date of discharge: 06/11/24 Primary care physician: Unknown Physician Consults: 06/09/24 14:25 Consult to Gastroenterology Routine Consulting Provider: Maryellen Pro Reason for consultation: bloody stool, black stool, ADRI. Consult to Neurology Routine Consulting Provider: [facility] Reason for consultation: One time seizure, Febrile, DS: Diagnosis Discharge Diagnosis (1) Sepsis: Status: Acute (2) Microscopic hematuria: Status: Acute (3) Black stool: Status: Acute (4) New onset seizure: Status: Acute (5) Influenza B: Status: Acute (6) Gram-negative bacteremia: Status: Acute DS: Summary Hospital Course Hospital Course: Admission note HPI Patient is a 38-year-old female with no significant past medical history who presented to the ED after a tonic-clonic seizure, with associated fever, headache, nausea, vomiting, diarrhea, melena, cough and fever for the past 2 days. She only had 1 seizure episode he reports no previous history of seizures. She reports black stool for the last 2 days since feeling poorly. She denies any Pepto-Bismol. She also has a epigastric pain and bilateral groin pain. She denies any hematuria and reports that she is not on her menstrual cycle. Hospital course The patient was evaluated and treated for the following: # Viral sepsis due to Flu B. Treated with Tamiflu with good response as she was weaned off O2 and able to ambulate on room air # GNR Bacteremia which could be real infection (likely UTI) or contaminent. covered with Ciprofloxacin. To continue Cipro for total of 10 days pending final culture. # New Seizure . Likely related to fever and acute illness. no recurrence while inpatient. MRI brain negative for any acute findings. Neurology evaluation, outpatient EEG in 2 weeks. Not to swim, sit in tub alone or drive for a while. hold on seizure medications for now until she follows with Neurology # melena with ADRI. Stable H&H. Treated with Pantoprazole 40mg BID and iron supplement. tolerated PO. GI followed the patient and recommended Outpatient EGD # microscopic hematuria. could be from infection. outpatient follow up as US Uterus negative for wall thickening. Discharge plan Continue Tamiflu as prescribed for Influenza Continue Ciprofloxacin as prescribed for bacterial infection, waiting final cultures Iron supplement for anemia Omeprazole daily Follow up with dr Pro from [facility] for further work up Follow with dr Armenta from Neurology as outpatient for EEG study and evaluation Not to swim, sit in tub alone or drive for 3-6 months free of seizure. Time Attestation Discharge Coordination Time (in mins): 42 Quality: Safe Use of Opioids Does Pt have an Active Cancer Diagnosis on the Problem List?: No Quality: Stroke Does the patient have a stroke diagnosis?: No Physical Exam Vital Signs: Vital Signs: Last Vital Signs Temp 98.8 F 06/11/24 10:55 Pulse 75 06/11/24 10:55 Resp 18 06/11/24 10:55 BP 104/67 06/11/24 10:55 Pulse Ox 98 06/11/24 10:55 O2 Del Method Room Air 06/11/24 10:55 BMI result Body Mass Index 28.3 Const: Other: Constitutional : Awake, interactive, not in distress Neck : Normal inspection, Supple Cardiovascular : RRR, no JVP, no lower extremity edema Respiratory : fair bilateral air entry, no crackles, wheezes or rhonchi Gastrointestinal: soft, lax, Normal bowel sounds, Non tender Skin : Warm, Dry Neurological : Alert & oriented x3, No focal deficit DS: Data Data Completed and Pending Labs on day of discharge: Laboratory Results - last 24 hr 06/10/24 06/11/24 16:52 05:55 WBC 2.9 L RBC 4.95 Hgb 10.8 L Hct 34.8 L MCV 70.3 L MCH 21.8 L MCHC 31.0 RDW 13.6 Plt Count 200 MPV 10.6 Immature Gran % (Auto) 0.3 Neut % (Auto) 62.7 Lymph % (Auto) 30.4 [place] % (Auto) 6.3 Eos % (Auto) 0.0 Baso % (Auto) 0.3 Lymph # (Auto) 0.9 L [place] # (Auto) 0.2 Eos # (Auto) 0.0 Baso # (Auto) 0.0 Abs Immat Gran (auto) 0.01 Absolute Neuts (auto) 1.8 L Absolute Nucleated RBC 0.000 Nucleated RBC % (auto) 0.0 Sodium 138 Potassium 4.3 Chloride 109 H Carbon Dioxide 23 Anion Gap 10 L BUN 6 L Creatinine 0.80 Estim Creat Clear Calc 90.9 Estimated GFR > 60 Random Glucose 123 H Calcium 8.7 D Stool Occult Blood NEGATIVE Preliminary micro results at discharge 06/07/24 23:25 Blood Culture - Preliminary Blood - Venous Prelim: GNR Gram Stain only 06/07/24 23:25 Blood Culture - Preliminary Blood - Venous No growth after 48 hours. Imaging MRI - head: Radiologist's impression: ITS Impressions Pelvic/Transvag US 06/10/24 14:55 IMPRESSION: Normal pelvic ultrasound. No etiology for abnormal uterine bleeding. Electronically signed by: Devin Miller MD 06/10/2024 03:54 PM [facility] MRI Brain Impression: Normal brain. Sinusitis could be considered. This document has been electronically signed by: Yolis Krause MD on 06/08/2024 18:06:22 Discharge Plan Discharge Anticipated Discharge Date/Time: 06/09/24 14:22 Patient Disposition: Home, Self-Care Discharge Diagnosis: Seizure Influenza Bacterial infection - UTI? Referrals: Physician,Unknown J [Primary Care Provider] - 1 Week Discharge Medications: New oseltamivir [Tamiflu] 75 mg Capsule 75 mg PO Q12H Qty: 4 0RF ferrous sulfate 324 mg (65 mg iron) Tablet,Delayed Release (Dr/Ec) 324 mg PO DAILY Qty: 90 0RF ciprofloxacin HCl 500 mg tablet 500 mg PO BID Qty: 14 0RF omeprazole 20 mg capsule,delayed release(DR/EC) 20 mg PO DAILY Qty: 90 0RF Discharge Orders: Discharge Order (Routine); Ordered 06/11/24 Ordered By: Dayna Shelton Diet: Advance to usual diet Activity on Discharge: As tolerated Stand Alone Forms: Patient Portal Discharge page Print Language: Sudanese Care Plan Goals: Continue Tamiflu as prescribed for Influenza Continue Ciprofloxacin as prescribed for bacterial infection, waiting final cultures Iron supplement for anemia Omeprazole daily Follow up with dr Pro from [facility] for further work up Follow with dr Armenta from Neurology as outpatient for EEG study and evaluation Not to swim, sit in tub alone or drive for 3-6 months free of seizures Health Concerns: Influenza Bleeding per rectum Plan of Treatment: Tamiflu Antibiotic GI follow up Assessment: as above Patient Instructions: Ciprofloxacin (By mouth), Iron Supplements (By mouth), Oseltamivir (By mouth)
--- NOTE | 2024-06-11 11:17 | MHC.CM.PN ---
Patient has been medically cleared for dc to home today, self care.
== END 2024-06-11 13:00 | disposition home or self-care (01) | DRG 720 ==
LOC: HO.ED 06-08 00:46 → HO.EDOVER 06-08 05:12 → HO.IMC 06-08 07:06
PROVIDERS: Admitting Provider Student in an Organized Health Care Education/Training Program; Emergency Provider Emergency Medicine; Visit Provider Student in an Organized Health Care Education/Training Program
DX: A41.89 Other specified sepsis (principal); M62.82 Rhabdomyolysis; R56.9 Unspecified convulsions; I95.9 Hypotension, unspecified; E86.0 Dehydration; D50.9 Iron deficiency anemia, unspecified; N39.0 Urinary tract infection, site not specified; J10.1 Influenza due to other identified influenza virus with other respiratory manifestations; K92.1 Melena; R31.29 Other microscopic hematuria; Z20.822 Contact with and (suspected) exposure to COVID-19
CPT/HCPCS: 0241U; 36415; 70450; 70551; 71045; 72125; 74176; 76830; 76856; 80048; 80053; 80076; 80307; 81001; 82272; 82550; 83540; 83605; 83690; 83735; 83880; 84484; 85025; 87040; 87076; 87185; 87205; 93005; 99285; J0744; J1200; J2405; J2470; J2919; J7120

== ENCOUNTER → 2024-06-07 22:32 | Outpatient (BNV) | payer MEDICAID, SELFPAY | PROVIDERS: Admitting Provider Student in an Organized Health Care Education/Training Program; Emergency Provider Emergency Medicine; Visit Provider Internal Medicine | DX: R00.0 Tachycardia, unspecified (principal) | CPT/HCPCS: 93010 ==

== ENCOUNTER → 2024-06-07 22:57 | Outpatient (BNV) | payer MEDICAID, SELFPAY | PROVIDERS: Emergency Provider Emergency Medicine; Visit Provider Specialist | DX: R10.9 Unspecified abdominal pain (principal); K62.5 Hemorrhage of anus and rectum; M54.2 Cervicalgia; W19.XXXA Unspecified fall, initial encounter; R56.9 Unspecified convulsions; R51.9 Headache, unspecified; R05.9 Cough, unspecified | CPT/HCPCS: 70450; 71045; 72125; 74176 ==

== ENCOUNTER 2024-06-08 05:46 | Outpatient (BNV) | payer MEDICAID, SELFPAY | END 2024-06-10 14:55 | PROVIDERS: Admitting Provider Student in an Organized Health Care Education/Training Program; Emergency Provider Emergency Medicine; Visit Provider Radiology Diagnostic Radiology | DX: N93.9 Abnormal uterine and vaginal bleeding, unspecified (principal) | CPT/HCPCS: 76830; 76856 ==

== ENCOUNTER 2024-06-08 05:46 | Outpatient (BNV) | payer MEDICAID, SELFPAY | END 2024-06-08 17:12 | PROVIDERS: Admitting Provider Student in an Organized Health Care Education/Training Program; Emergency Provider Emergency Medicine; Visit Provider Radiology Diagnostic Radiology | DX: R56.9 Unspecified convulsions (principal) | CPT/HCPCS: 70551 ==

== ENCOUNTER → 2024-06-08 05:46 | Outpatient (BNV) | payer MEDICAID, SELFPAY | PROVIDERS: Admitting Provider Student in an Organized Health Care Education/Training Program; Emergency Provider Emergency Medicine; Visit Provider Physician Assistant | DX: A41.9 Sepsis, unspecified organism (principal); R56.9 Unspecified convulsions; J10.1 Influenza due to other identified influenza virus with other respiratory manifestations; K92.1 Melena; R31.29 Other microscopic hematuria | CPT/HCPCS: 99223; 99232; 99239; 99499 ==

== ENCOUNTER → 2024-06-08 05:46 | Outpatient (BNV) | payer MEDICAID, SELFPAY | PROVIDERS: Admitting Provider Student in an Organized Health Care Education/Training Program; Emergency Provider Emergency Medicine; Visit Provider Psychiatry & Neurology Neurology | DX: R56.9 Unspecified convulsions (principal) | CPT/HCPCS: 99222 ==

== ENCOUNTER → 2024-06-08 05:46 | Outpatient (BNV) | payer MEDICAID, SELFPAY | PROVIDERS: Admitting Provider Student in an Organized Health Care Education/Training Program; Emergency Provider Emergency Medicine; Visit Provider Internal Medicine Gastroenterology | DX: K92.1 Melena (principal) | CPT/HCPCS: 99499 ==

== ENCOUNTER 2024-11-15 07:59 | Emergency (ER) | payer MEDICAID, SELFPAY ==
--- NOTE | ~2024-11-15 | XR_ITS ---
EXAMINATION: XR ABDOMEN KUB CLINICAL INDICATION: left sided abd pain, constipation, vomiting COMPARISON: CT dated June 07, 2024. TECHNIQUE: AP view of the abdomen. FINDINGS: Abundant stool. No intestinal dilatation. No air-fluid levels. Vascular clips right upper quadrant abdomen, likely Status post cholecystectomy. Metallic piercing likely umbilical. Mild levoconvex curvature lumbar spine. Rudimentary ribs at T12. . XR/XR KUB IMPRESSION: No intestinal obstruction pattern. Electronically signed by: Rivera Suh MD 11/15/2024 10:59 AM EDT
[2024-11-15 08:00] VITALS: BP 127/85; PULSE 76; RESP 18; O2SAT 99; BMI 28.9
[2024-11-15 08:24] LABS: Hematocrit 35.6 % (37.0-47.0); Hemoglobin 11.3 g/dl (12.0-16.0); Imm Gran Abs Auto 0.01 X10*3/uL (0.00-0.03); Imm Gran Pct Auto 0.2 % (0.0-0.4); Lymphocytes Absolute Auto 1.5 X10*3/uL (1.2-4.9); MANUAL DIFF FLAG NO; Mean Corpuscular HGB Conc 31.7 g/dl (31.0-35.0); Mean Corpuscular Hemoglobin 21.9 pg (27.0-33.0); Mean Corpuscular Volume 69.1 fL (80.0-98.0); NRBC Abs Auto 0.000 X10*3/uL (0.0-0.012); NRBC Pct Auto 0.0 /100WBC (0.0-0.2); Platelet Count 250 X10*3/uL (160-400); Red Blood Count 5.15 X10*6/uL (4.20-5.50); White Blood Count 5.8 X10*3/uL (4.8-10.8)
[2024-11-15 08:29] LABS: Appearance Urine Cloudy; Glucose Urine UA Negative (Negative); PH 5.5 (5.0-9.0); Specific Gravity - Urine 1.025 (1.005-1.025); UMIC TRIGGER UACC YES
[2024-11-15 08:30] LABS: UPreg QC Valid YES
[2024-11-15 08:37] LABS: Alanine Aminotransferase 15 U/L (0-31); Albumin Level 4.1 g/dL (3.5-5.0); Alkaline Phosphatase 96 U/L (39-117); Anion Gap 10 (12-20); Aspartate Amino Transferase 19 U/L (5-31); Blood Urea Nitrogen 7 mg/dL (9-16); Calcium 8.9 mg/dL (8.4-10.2); Carbon Dioxide 26 mmol/L (22-29); Chloride 109 mmol/L (96-108); Creatinine Clr Calc Pharmacy 80.3; Estimated Glomerular Filt Rate > 60; Lipase 15 U/L (8-78); Potassium 3.5 mmol/L (3.3-5.1); Sodium 141 mmol/L (135-145); Total Protein 6.8 g/dL (6.5-8.0)
--- NOTE | 2024-11-15 09:10 | PC.NURSE ---
pt reports dizziness, nausea, abd swelling. abd is soft-non tender. no vomiting. awaits provider eval. moist mm.
[2024-11-15 09:13] VITALS: BP 101/63; PULSE 70; RESP 18; TEMP 36.6; O2SAT 100
--- NOTE | 2024-11-15 10:02 | ED.ABDPAIN ---
HPI - Abdominal Pain General Chief Complaint: Abdominal Pain Stated Complaint: Abnormal labs, dizziness/nausea Time Seen by Provider: 11/15/24 10:02 Source: patient Mode of arrival: ambulatory Limitations: no limitations History of Present Illness ED Provider: Thien Mccarty PA-C HPI narrative: 38 yo female with history of constipation, history of admission to [facility] in May for fever, new seizure, Gram-negative juve bacteremia, melena with iron-deficiency anemia who presents to the ER for evaluation of left-sided abdominal pain for the last 5 days. She states she suffers from chronic constipation and last had a bowel movement 2 weeks ago. She states she intermittently has tried [id number] laxatives and stool softeners with minimal relief. She states it is not unusual for her to go week or 2 without having a bowel movement. Yesterday the pain got worse where she went to the urgent care. They did a urinalysis that showed trace amounts of blood and bilirubin in her urine. She has been nauseous for the last couple of weeks but has not vomited until yesterday. She had 1 episode of nonbilious, nonbloody vomiting. No fever or chills. No urinary symptoms. MD elicited complaint: abdominal pain Pertinent past history: constipation Onset (ago): day(s) Pain Consistency: intermittent Location: LLQ Severity: moderate Quality: aching and fullness Radiation: none Migration to: no migration Exacerbating factors: nothing Relieving factors: nothing Associated symptoms: nausea and vomiting Related Data Previous Rx's ?Medication ?Instructions ?Recorded ciprofloxacin HCl 500 mg tablet 500 mg PO BID #14 tabs 06/11/24 ferrous sulfate 324 mg (65 mg 324 mg PO DAILY #90 tabs 06/11/24 iron) tablet,delayed release omeprazole 20 mg capsule,delayed 20 mg PO DAILY #90 caps 06/11/24 release oseltamivir 75 mg capsule (Tamiflu) 75 mg PO Q12H #4 caps 06/11/24 docusate sodium 100 mg capsule 100 mg PO BID #30 caps 11/15/24 (Stool Softener) lactulose 20 gram oral packet 20 g PO BID PRN constipation #15 ea 11/15/24 polyethylene glycol 3350 17 17 g PO DAILY #238 grams 11/15/24 gram/dose oral powder (ClearLax) Allergies Allergy/AdvReac Type Severity Reaction Status Date / Time latex Allergy Anaphylaxis Verified 11/15/24 08:02 Latex, Natural Rubber Allergy Anaphylaxis Verified 11/15/24 08:02 Penicillins (PCN) Allergy Anaphylaxis Verified 11/15/24 08:02 seafood Allergy Hives Verified 11/15/24 08:02 Review of Systems Review of Systems Yes all other systems are reviewed and are negative [facility] Social History Social History Household Members: Family Housing: Apartment Do you presently have visiting nurse or other home services: No Alcohol intake: never Patient Tobacco Use Status: Never used Tobacco Smoked in Last 30 Days: No Use of substances other than those prescribed or required for medical reasons: No Advance Directives: No Advance Directives Information Provided: No Do you have a plan to hurt others: No Plan Patient : No service: No Physical Exam ED Vital Signs: Vital Signs - 24 hr 11/15/24 08:00 11/15/24 09:13 Temperature 97.8 F Pulse Rate 76 70 Respiratory Rate 18 18 Blood Pressure 127/85 101/63 Pulse Oximetry 99 100 Oxygen Delivery Method Room Air BMI result Body Mass Index 28.9 Appearance: Alert. Oriented X3. No acute distress. Head: normocephalic, atraumatic. Eyes: Pupils equal, round and reactive to light. ENT: Pharynx normal. No tonsillar swelling or exudate. Neck: Normal inspection. Neck supple. CVS: Normal heart rate and rhythm. Pulses normal. Respiratory: No respiratory distress. Breath sounds normal. Abdomen: Soft and nontender. decreased but present +BS x4 Skin: Skin warm and dry. Normal skin color. Normal skin turgor. No rashes. Extremities: No lower extremity edema. No joint swelling. Neuro/psych: Oriented X 3. nonfocal, CN II-XII intact. Normal speech and cognition. Medical Decision Making Medical Decision Making MDM Narrative: 38-year-old female presents to the ER for evaluation of abdominal pain, mostly on the left side associated with intermittent dizziness when she stands. Patient suffers from chronic constipation and has not had a bowel movement in 2 weeks. She vomited yesterday and has been nauseous. Seen in urgent care where she had small amount of blood in her urine. Upon review of her records she has had microscopic hematuria since last year. She is not on her menstrual cycle right now. She has no vaginal discharge or vaginal pain. Her abdominal exam is benign, very soft, with some mild tenderness in the left side. No point tenderness, rebound or guarding. She has decreased but present bowel sounds. Low suspicion for obstruction. KUB was obtained which showed abundant stool without any evidence of obstruction. Rectal exam without stool ball, mass or abnormality. Rectal suppository placed. Oral laxatives given. Patient would like to go home with bowel regimen and have a bowel movement there. Will prescribe laxatives and have her follow-up with GI. Also discussed her microscopic hematuria that has been persistent and needs evaluation. Stable for discharge home with outpatient follow-up. Differential Diagnosis Differential Diagnoses: The differential diagnosis associated with the presentation includes Constipation, diverticulitis, bowel obstruction, dehydration, UTI, STI Admission/Observation Consideration of admission/observation: Escalation of care including admission/observation considered Lab Data MDM Lab Attestation statement: I reviewed the patient's lab results. Mild stable anemia, no leukocytosis, normal renal function 11/15/24 08:14 11/15/24 08:14 Labs: Lab Results 11/15/24 11/15/24 Range/Units 08:14 08:15 WBC 5.8 (4.8-10.8) X10*3/uL RBC 5.15 (4.20-5.50) X10*6/uL Hgb 11.3 L (12.0-16.0) g/dl Hct 35.6 L (37.0-47.0) % MCV 69.1 L (80.0-98.0) fL MCH 21.9 L (27.0-33.0) pg MCHC 31.7 (31.0-35.0) g/dl RDW 14.2 (11.0-16.0) % Plt Count 250 (160-400) X10*3/uL MPV 10.1 (9.4-12.3) fL Immature Gran % (Auto) 0.2 (0.0-0.4) % Neut % (Auto) 60.8 (45-73) % Lymph % (Auto) 26.2 (20-40) % [place] % (Auto) 9.0 (2-11) % Eos % (Auto) 2.8 (0-4) % Baso % (Auto) 1.0 (0-2) % Lymph # (Auto) 1.5 (1.2-4.9) X10*3/uL [place] # (Auto) 0.5 (0.1-1.2) X10*3/uL Eos # (Auto) 0.2 (0.0-0.4) X10*3/uL Baso # (Auto) 0.1 (0.0-0.2) X10*3/uL Abs Immat Gran (auto) 0.01 (0.00-0.03) X10*3/uL Absolute Neuts (auto) 3.5 (2.0-8.3) x10*3/uL Absolute Nucleated RBC 0.000 (0.0-0.012) X10*3/uL Nucleated RBC % (auto) 0.0 (0.0-0.2) /100WBC Sodium 141 (135-145) mmol/L Potassium 3.5 (3.3-5.1) mmol/L Chloride 109 H (96-108) mmol/L Carbon Dioxide 26 (22-29) mmol/L Anion Gap 10 L (12-20) BUN 7 L (9-16) mg/dL Creatinine 0.88 (0.5-1.4) mg/dL Estim Creat Clear Calc 80.3 Estimated GFR > 60 Random Glucose 96 (60-115) mg/dL Calcium 8.9 (8.4-10.2) mg/dL Total Bilirubin 1.1 H (0.0-1.0) mg/dL Direct Bilirubin 0.4 (0.0-0.5) mg/dL AST 19 (5-31) U/L ALT 15 (0-31) U/L Alkaline Phosphatase 96 (39-117) U/L Total Protein 6.8 (6.5-8.0) g/dL Albumin 4.1 (3.5-5.0) g/dL Lipase 15 (8-78) U/L Urine Color Yellow Urine Appearance Cloudy Urine pH 5.5 (5.0-9.0) Ur Specific [place] 1.025 (1.005-1.025) Urine Protein Negative (Neg-Trace) mg/dL Urine Glucose (UA) Negative (Negative) mg/dL Urine Ketones Trace (Negative) mg/dL Urine Blood Large (3+) H (Negative) Urine Nitrite Negative (Negative) Ur Leukocyte Esterase Trace H (Negative) Urine RBC 11-20 H (0-2) /HPF Urine WBC 0-5 (0-5) /HPF Ur Squamous Epith Cells 11-20 (0-2) /HPF Urine Bacteria 2+ (None Seen) Hyaline Casts 0-2 (0-2) /LPF Urine Test NEGATIVE (NEGATIVE) Independent Interpretation I performed an independent interpretation of an: Plain X-Ray Interpretation: KUB without any air-fluid levels of suggest obstruction, large amount of stool in the colon Radiology Impression Discussion of test interpretation with radiology: I have reviewed the radiologist's reading. External Record Review External record reviewed: Inpatient record Tests considered The following testing was considered but not selected: Consider CT scan of her abdomen however there is low suspicion for acute abdominal process Prescription Management I considered prescription management with: Pain Medication, Antibiotic (Low suspicion for diverticulitis) and Other (Laxative) Chronic Conditions Patient?s care impacted by: Other (Constipation) Medications Administered Discontinued Medications Generic Name Dose Route Start Last Admin Trade Name Freq PRN Reason Stop Dose Admin Bisacodyl 10 mg 11/15/24 11:18 11/15/24 12:05 Bisacodyl 10 Mg Supp.Rect AL 11/15/24 11:19 10 mg ONCE ONE Administration Sodium Chloride 1,000 mls @ 999 mls/hr 11/15/24 10:15 11/15/24 10:27 Ns IVCONT 11/15/24 11:15 999 mls/hr .Q1H1M SHILPI Administration Lactulose 20 gm 11/15/24 11:18 11/15/24 12:05 Lactulose 20 Gm/30 Ml Solution PO 11/15/24 11:19 20 gm ONCE ONE Administration Ondansetron HCl 4 mg 11/15/24 10:11 11/15/24 10:26 Ondansetron Hcl 4 Mg/2 Ml Vial IVPUSH 11/15/24 10:12 4 mg ONCE ONE Administration Polyethylene Glycol 17 gm 11/15/24 11:18 11/15/24 12:05 Polyethylene Glycol 3350 17 Gm Powd.Pack PO 11/15/24 11:19 17 gm ONCE ONE Administration Critical Care Time Critical Care Time Critical Care Time: No Discharge Plan Discharge Clinical Impression: Constipation Qualifiers: Constipation type: unspecified constipation type Qualified Code(s): K59.00 - Constipation, unspecified Patient Disposition: Home, Self-Care Instructions: Constipation (DC), High Fiber Diet (ED) Additional Instructions: Recommend MiraLax 1-2 times per day. A prescription for this has been sent to your pharmacy, it is also available [id number]. Also recommend senna as a stimulant laxative as needed for constipation. Take the docusate 2 times a day, this is not a laxative but a stool softener to keep your stool soft. This is also available [id number]. Lactulose is another laxative that can be taken 2 times per day as needed for constipation. Recommend Metamucil each day, this is a fiber supplement that will help with constipation. It is important that you stay hydrated drink plenty of fluids. Your urinalysis here showed trace amounts of blood in your urine. This has been present since 2023. Recommend following up with Urology for further evaluation and treatment of this. Follow-up with your primary care doctor, also recommend following up with GI for further evaluation and treatment. If you develop new or worsening symptoms call 911 or come back to the ER for further evaluation. Prescriptions: New polyethylene glycol 3350 [ClearLax] 17 gram/dose powder 17 g PO DAILY Qty: 238 0RF docusate sodium [Stool Softener] 100 mg capsule 100 mg PO BID Qty: 30 0RF lactulose 20 gram packet 20 g PO BID PRN (Reason: constipation) Qty: 15 0RF No Action oseltamivir [Tamiflu] 75 mg Capsule 75 mg PO Q12H Qty: 4 0RF ferrous sulfate 324 mg (65 mg iron) Tablet,Delayed Release (Dr/Ec) 324 mg PO DAILY Qty: 90 0RF ciprofloxacin HCl 500 mg tablet 500 mg PO BID Qty: 14 0RF omeprazole 20 mg capsule,delayed release(DR/EC) 20 mg PO DAILY Qty: 90 0RF Referrals: [facility] [Provider Group, Gastroenterology] Referral Note: severe constipation [facility] Urology Services [Provider Group, Urology] Stand Alone Forms: Work/School Release Print Language: Australian
[2024-11-15 12:14] VITALS: BP 105/62; PULSE 72; RESP 16; TEMP 36.6; O2SAT 99
== END 2024-11-15 12:21 | disposition home or self-care (01) ==
PROVIDERS: Emergency Provider Emergency Medicine
DX: K59.00 Constipation, unspecified (principal); R10.32 Left lower quadrant pain
CPT/HCPCS: 36415; 74018; 80048; 80076; 81001; 81025; 83690; 85025; 96361; 96374; 99284; J2405

== ENCOUNTER → 2024-11-15 10:11 | Outpatient (BNV) | payer MEDICAID, SELFPAY | PROVIDERS: Emergency Provider Emergency Medicine; Visit Provider Radiology Diagnostic Radiology | DX: R10.12 Left upper quadrant pain (principal) | CPT/HCPCS: 74018 ==

== ENCOUNTER 2025-02-13 08:50 | Emergency (ER) | payer MEDICAID, SELFPAY ==
--- NOTE | ~2025-02-13 | US_ITS ---
EXAMINATION: US RETROPERITONEAL LIMITED (KIDNEYS) CLINICAL INFORMATION: Bilateral flank pain.. COMPARISON: Correlated to noncontrast CT dated June 07, 2024 TECHNIQUE: Real-time ultrasound kidneys using grayscale technique.. FINDINGS: Right kidney measures 11 x 3 x 5 cm. Normal echotexture. Normal renal cortical thickness. No solid or cystic lesion. No hydronephrosis. Left kidney measures 11 x 5 x 5 cm. Normal echotexture. Normal renal cortical thickness. No hydronephrosis. No solid or cystic lesion. US/US retroperitoneal limited IMPRESSION: No hydronephrosis or gross nephrolithiasis. Normal exam.. Electronically signed by: Rivera Suh MD 02/13/2025 10:15 AM EDT
[2025-02-13 08:58] VITALS: BP 121/78; PULSE 94; RESP 18; TEMP 36.6; O2SAT 100; BMI 26.9
--- NOTE | 2025-02-13 09:05 | ED_ITS ---
HPI - Abdominal Pain General Chief Complaint: Abdominal Pain Stated Complaint: Body pain, pain when urinating Time Seen by Provider: 02/13/25 08:56 Source: patient and old records reviewed Mode of arrival: ambulatory Limitations: no limitations History of Present Illness ED Provider: JUANA HPI narrative: 39 yo female with PMH of flu B causing possible seizure, UTI with ?GNR bacteremia, possible UGIB but no follow up with GI. She reports feeling like she has to push to urinate but no dysuria for the past couple of days. She then feels bilateral back pain. She has no n/v/d. She reports no vaginal discharge. She had a temp of 100.3 yesterday. She reports possible hx of renal colic in past. MD elicited complaint: flank pain Pertinent past history: none Onset (ago): day(s) (2) Pain Consistency: intermittent Location: L flank and R flank Severity: moderate Quality: aching Radiation: none Migration to: no migration Exacerbating factors: other (urination) Relieving factors: nothing Associated symptoms: fever and chills Related Data Previous Rx's ?Medication ?Instructions ?Recorded ciprofloxacin HCl 500 mg tablet 500 mg PO BID #14 tabs 06/11/24 ferrous sulfate 324 mg (65 mg 324 mg PO DAILY #90 tabs 06/11/24 iron) tablet,delayed release omeprazole 20 mg capsule,delayed 20 mg PO DAILY #90 ca ps 06/11/24 release oseltamivir 75 mg capsule (Tamiflu) 75 mg PO Q12H #4 c aps 06/11/24 docusate sodium 100 mg capsule 100 mg PO BID #30 caps 11/15/24 (Stool Softener) lactulose 20 gram oral packet 20 g PO BID PRN constipa tion #15 ea 11/15/24 polyethylene glycol 3350 17 17 g PO DAILY #238 grams 0 11/15/24 gram/dose oral powder (ClearLax) cyclobenzaprine 10 mg tablet 10 mg PO TID PRN muscle s pasm #20 02/13/25 tabs nitrofurantoin 100 mg PO BID 5 days #10 cap s 02/13/25 monohydrate/macrocrystals 100 mg capsule (Macrobid) ondansetron 4 mg disintegrating 4 mg PO Q8H PRN nausea and 02/13/25 tablet vomiting #20 tabs Allergies Allergy/AdvReac Type Severity Reaction Status Date / Time latex Allergy Anaphylaxis Verified 02/13/25 09:00 Latex, Natural Rubber Allergy Anaphylaxis Verified 02/13/25 09:00 Penicillins (PCN) Allergy Anaphylaxis Verified 02/13/25 09:00 seafood Allergy Hives Verified 02/13/25 09:00 Review of Systems Review of Systems Constitutional : pos Fever, pos Chills ENT/Mouth : No sore throat, No Rhinorrhea Eyes: No Eye Pain, No Swelling, No Redness Cardiovascular : No Chest Pain, No SOB, No Dyspnea on Exertion Respiratory : No Cough, No Sputum Gastrointestinal : No Nausea, No Vomiting, No Diarrhea, No abdominal Pain, pos flank pain Genitourinary : No Dysuria, No Urinary Frequency, No Hematuria, Musculoskeletal : No joint pain, No Myalgias, No Joint Swelling Skin : No Skin Lesions, No rash Neuro : No Weakness, No Numbness, No Dizziness, no Headache All other systems reviewed and are negative PMFSH Past Medical History Attestation statement: The following information was validated with the patient. Source: old records reviewed Medical History Gram-negative bacteremia Social History Social History Household Members: Family Housing: Apartment Do you presently have visiting nurse or other home services: No Alcohol intake: never Patient Tobacco Use Status: Never used Tobacco Advance Directives: No Advance Directives Information Provided: Yes service: No Physical Exam ED Vital Signs: Vital Signs - 24 hr 02/13/25 08:58 02/13/25 10:24 Temperature 97.9 F 98.2 F Pulse Rate 94 85 Respiratory Rate 18 16 Blood Pressure 121/78 101/63 Pulse Oximetry 100 100 Oxygen Delivery Method Room Air Room Air BMI result Body Mass Index 26.9 Appearance: Alert. Oriented X3. No acute distress. Eyes: Pupils equal, round and reactive to light. ENT: Pharynx normal. Neck: Normal inspection. Neck supple. CVS: Normal heart rate and rhythm. Pulses normal. Respiratory: No respiratory distress. Breath sounds normal. Abdomen: Soft and nontender. Back: bilateral flank ttp Skin: Skin warm and dry. Normal skin color. Normal skin turgor. Extremities: No lower extremity edema. Neuro: Oriented X 3. No motor deficit. No sensory deficit. Medical Decision Making Medical Decision Making [facility] Narrative: 39 yo female with PMH of flu B causing possible seizure, UTI with ?GNR bacteremia, possible UGIB but no follow up with GI now here with c/o bilateral flank pain and feeling pressure to urinate. She had a temp of 100.3 yesterday. At this time she has taken no medications will obtain labs, UA, US bilateral kidneys for signs of renal colic/obstruction. IV toradol for pain. Differential Diagnosis Differential Diagnoses: The differential diagnosis associated with the presentation includes renal colic, urinary pathology, ELIANA Admission/Observation Consideration of admission/observation: Escalation of care including admission/observation considered labs at baseline no UTI chronic hematuria renal normal in appearance Lab Data [facility] Lab Attestation statement: I reviewed the patient's lab results. 02/13/25 09:09 02/13/25 09:09 Labs: Lab Results 02/13/25 02/13/25 Range/Units 09:06 09:09 WBC 10.5 (4.8-10.8) X10*3/uL RBC 5.28 (4.20-5.50) X10*6/uL Hgb 11.5 L (12.0-16.0) g/dl Hct 37.8 (37.0-47.0) % MCV 71.6 L (80.0-98.0) fL MCH 21.8 L (27.0-33.0) pg MCHC 30.4 L (31.0-35.0) g/dl RDW 14.0 (11.0-16.0) % Plt Count 236 (160-400) X10*3/uL MPV 10.3 (9.4-12.3) fL Immature Gran % (Auto) 0.3 (0.0-0.4) % Neut % (Auto) 78.8 H (45-73) % Lymph % (Auto) 10.9 L (20-40) % Barbour % (Auto) 8.2 (2-11) % Eos % (Auto) 1.3 (0-4) % Baso % (Auto) 0.5 (0-2) % Lymph # (Auto) 1.1 L (1.2-4.9) X10*3/uL Barbour # (Auto) 0.9 (0.1-1.2) X10*3/uL Eos # (Auto) 0.1 (0.0-0.4) X10*3/uL Baso # (Auto) 0.1 (0.0-0.2) X10*3/uL Abs Immat Gran (auto) 0.03 (0.00-0.03) X10*3/uL Absolute Neuts (auto) 8.3 (2.0-8.3) x10*3/uL Absolute Nucleated RBC 0.000 (0.0-0.012) X10*3/uL Nucleated RBC % (auto) 0.0 (0.0-0.2) /100WBC Sodium 139 (135-145) mmol/L Potassium 3.5 (3.3-5.1) mmol/L Chloride 110 H (96-108) mmol/L Carbon Dioxide 24 (22-29) mmol/L Anion Gap 9 L (12-20) BUN 9 (9-16) mg/dL Creatinine 0.83 (0.5-1.4) mg/dL Estim Creat Clear Calc 84.7 Estimated GFR > 60 Random Glucose 89 (60-115) mg/dL Calcium 8.9 (8.4-10.2) mg/dL Magnesium 1.8 (1.6-2.6) mg/dL Total Bilirubin 1.2 H (0.0-1.0) mg/dL Direct Bilirubin 0.4 (0.0-0.5) mg/dL AST 22 (5-31) U/L ALT 12 (0-31) U/L Alkaline Phosphatase 84 (39-117) U/L Total Protein 6.9 (6.5-8.0) g/dL Albumin 4.1 (3.5-5.0) g/dL Lipase 11 (8-78) U/L Beta HCG, Quant < 2 mIU/mL Urine Color Dark Yellow Urine Appearance Cloudy Urine pH 5.5 (5.0-9.0) Ur Specific Dewey >= 1.030 H (1.005-1.025) Urine Protein Trace (Neg-Trace) mg/dL Urine Glucose (UA) Negative (Negative) mg/dL Urine Ketones Trace (Negative) mg/dL Urine Blood Moderate (2+) H (Negative) Urine Nitrite Negative (Negative) Ur Leukocyte Esterase Negative (Negative) Urine RBC >20 H (0-2) /HPF Urine WBC 0-5 (0-5) /HPF Ur Squamous Epith Cells 11-20 (0-2) /HPF Urine Bacteria 3+ (None Seen) Hyaline Casts 3-5 (0-2) /LPF Independent Interpretation I performed an independent interpretation of an: Ultrasound (normal ) Radiology Impression Discussion of test interpretation with radiology: I have reviewed the radiologist's reading. External Record Review External record reviewed: Inpatient record, Outpatient record, Prior outpatient labs and Prior outpatient radiology Prescription Management I considered prescription management with: Pain Medication and Antibiotic Medications Administered Discontinued Medications Generic Name Dose Route Start Last Admin Trade Name Freq PRN Reason Stop Dose Admin Ketorolac Tromethamine 15 mg 02/13/25 09:02 02/13/25 09:15 Ketorolac Tromethamine 15 Mg/Ml Vial IVPUSH 02/13/25 09:03 15 mg ONCE ONE Administration Discharge Plan Discharge Clinical Impression: Acute flank pain Patient Disposition: Home, Self-Care Instructions: Flank Pain (ED) Additional Instructions: labs reassuring US no stone or blockage of kidney urine has some bacteria and blood (you chronically have blood) will start on urinary antibiotic rest and stay hydrated return for any worsening symptoms or concerns. Prescriptions: New cyclobenzaprine 10 mg tablet 10 mg PO TID PRN (Reason: muscle spasm) Qty: 20 0RF ondansetron 4 mg tablet,disintegrating 4 mg PO Q8H PRN (Reason: nausea and vomiting) Qty: 20 0RF nitrofurantoin monohyd/m-cryst [Macrobid] 100 mg capsule 100 mg PO BID 5 Days Qty: 10 0RF Rx Instructions: must administer with a meal/food No Action oseltamivir [Tamiflu] 75 mg Capsule 75 mg PO Q12H Qty: 4 0RF ferrous sulfate 324 mg (65 mg iron) Tablet,Delayed Release (Dr/Ec) 324 mg PO DAILY Qty: 90 0RF ciprofloxacin HCl 500 mg tablet 500 mg PO BID Qty: 14 0RF omeprazole 20 mg capsule,delayed release(DR/EC) 20 mg PO DAILY Qty: 90 0RF polyethylene glycol 3350 [ClearLax] 17 gram/dose powder 17 g PO DAILY Qty: 238 0RF docusate sodium [Stool Softener] 100 mg capsule 100 mg PO BID Qty: 30 0RF lactulose 20 gram packet 20 g PO BID PRN (Reason: constipation) Qty: 15 0RF Stand Alone Forms: Work/School Release Print Language: Khmer
[2025-02-13 09:14] LABS: MANUAL DIFF FLAG NO
[2025-02-13 09:17] LABS: Hematocrit 37.8 % (37.0-47.0); Hemoglobin 11.5 g/dl (12.0-16.0); Imm Gran Abs Auto 0.03 X10*3/uL (0.00-0.03); Imm Gran Pct Auto 0.3 % (0.0-0.4); Lymphocytes Absolute Auto 1.1 X10*3/uL (1.2-4.9); Mean Corpuscular HGB Conc 30.4 g/dl (31.0-35.0); Mean Corpuscular Hemoglobin 21.8 pg (27.0-33.0); Mean Corpuscular Volume 71.6 fL (80.0-98.0); NRBC Abs Auto 0.000 X10*3/uL (0.0-0.012); NRBC Pct Auto 0.0 /100WBC (0.0-0.2); Platelet Count 236 X10*3/uL (160-400); Red Blood Count 5.28 X10*6/uL (4.20-5.50); White Blood Count 10.5 X10*3/uL (4.8-10.8)
[2025-02-13 09:19] LABS: Appearance Urine Cloudy; Glucose Urine UA Negative (Negative); PH 5.5 (5.0-9.0); Specific Gravity - Urine >= 1.030 (1.005-1.025); UMIC TRIGGER UACC YES
[2025-02-13 09:39] LABS: Alanine Aminotransferase 12 U/L (0-31); Albumin Level 4.1 g/dL (3.5-5.0); Alkaline Phosphatase 84 U/L (39-117); Anion Gap 9 (12-20); Aspartate Amino Transferase 22 U/L (5-31); Blood Urea Nitrogen 9 mg/dL (9-16); Calcium 8.9 mg/dL (8.4-10.2); Carbon Dioxide 24 mmol/L (22-29); Chloride 110 mmol/L (96-108); Creatinine Clr Calc Pharmacy 84.7; Estimated Glomerular Filt Rate > 60; Lipase 11 U/L (8-78); Magnesium 1.8 mg/dL (1.6-2.6); Potassium 3.5 mmol/L (3.3-5.1); Sodium 139 mmol/L (135-145); Total Protein 6.9 g/dL (6.5-8.0)
[2025-02-13 10:24] VITALS: BP 101/63; PULSE 85; RESP 16; TEMP 36.8; O2SAT 100
[2025-02-13 10:38] VITALS: BP 101/63; PULSE 85; RESP 16; TEMP 36.8; O2SAT 100
== END 2025-02-13 10:44 | disposition home or self-care (01) ==
PROVIDERS: Emergency Provider Emergency Medicine
DX: M79.10 Myalgia, unspecified site (principal); R30.0 Dysuria; R50.9 Fever, unspecified; R10.A3 Flank pain, bilateral; R10.9 Unspecified abdominal pain; Z79.899 Other long term (current) drug therapy
CPT/HCPCS: 36415; 76775; 80048; 80076; 81001; 83690; 83735; 84702; 85025; 96372; 99283; 99284; J1885

== ENCOUNTER → 2025-02-13 09:02 | Outpatient (BNV) | payer MEDICAID, SELFPAY | PROVIDERS: Emergency Provider Emergency Medicine; Visit Provider Radiology Diagnostic Radiology | DX: R10.A3 Flank pain, bilateral (principal) | CPT/HCPCS: 76775 ==